=== PATIENT | female | born 1960 | race African-American/Black ===

== ENCOUNTER 2020-09-08 17:16 | Inpatient (IN) | payer OTHER ==
[~2020-09-08] VITALS: Ht 167.6 cm; Wt 59.4 kg
[2020-09-08 17:18] VITALS: BP 112/63
[2020-09-08 18:10] LABS: ABSOLUTE NEUTROPHILS 4.4 thou/uL (1.4-8.2); BASOPHILS 0.3 % (0.0-2.0); EOSINOPHILS 0.1 % (0.0-3.0); HEMATOCRIT 30.6 % (37.0-47.0); HEMOGLOBIN 9.9 gm/dL (12.0-15.0); LYMPHOCYTES 21.2 % (24.0-44.0); MCH 30.2 pg (26.0-34.0); MCHC 32.3 g/dL (28.0-37.0); MCV 93.6 fL (80.0-100.0); MONOCYTES 4.7 % (1.0-8.0); PLATELET COUNT 363 thou/uL (150-400); POLYS 73.7 % (36.0-66.0); RBC 3.27 mil/uL (4.20-5.00); RDW 16.6 % (10.5-14.5)
[2020-09-08 18:25] LABS: ANION GAP 19 mmol/L (7-16); BUN 13 mg/dL (7-18); CALCIUM 9.1 mg/dL (8.5-10.1); CHLORIDE 102 mmol/L (98-107); CO2 21 mmol/L (21-32); CREATININE 0.9 mg/dL (0.6-1.0); GLUCOSE 86 mg/dL (74-106); SODIUM 142 mmol/L (136-145); TROPONIN-I <0.06 ng/mL (<0.06)
[2020-09-08 18:31] LABS: POTASSIUM 2.2 mmol/L (3.5-5.1)
[2020-09-08 19:10] LABS: ALBUMIN 2.3 g/dL (3.4-5.0); DIRECT BILIRUBIN 0.5 mg/dL (<0.1-0.2); MAGNESIUM 1.9 mg/dL (1.8-2.4); TOTAL BILIRUBIN 1.4 mg/dL (0.2-1.0)
--- NOTE | 2020-09-08 19:54 | NUR ---
CONTACTED PHARMACY ABOUT LIQUID FORM OF POTASSIUM FOR PT. PT REPORTED TO DAY SHIFT NURSE THAT SHE IS NOT ABLE TO TAKE TABLET FORM AND NORMALLY TAKES LIQUID.
[2020-09-08 20:32] LABS: AMP/METHAMP Negative (Negative); BARBITURATES Negative (Negative); BENZODIAZEPINES Negative (Negative); COCAINE Negative (Negative); METHADONE Negative (Negative); OPIATES Negative (Negative); PCP Negative (Negative)
[2020-09-08 20:53] VITALS: BP 101/77
--- NOTE | 2020-09-08 20:58 | NUR ---
1ST ATTEMPT TO CALL REPORT NO ANSWER.
[2020-09-08 22:02] VITALS: BP 101/72
[2020-09-08 23:03] VITALS: BP 103/50
--- NOTE | 2020-09-09 02:41 | NUR ---
PT ADMITTED FROM THE ER AT 2215 .PT IS A/O X4.PT ADMITTED WITH C/OAMS,HYPOKALEMIA,WASTING AND NOT EATING.PT POTASSIUM REPLACED AT THE ER .PT C/O COLD AND PAIN ON LOWER EXTREMITY.PT IS ON ROOM AIR.PT HAS A SMITH CATHETER IN PLACE.PT IS MED/SURG TELE WITH NSR/ST.IV ON RT JUGULAR WITH NS AT 150CC/HR.PT IS ON BEDREST DUE TO BODY WEAKNESS.WILL CONTINUE TO MONITOR
[2020-09-09 07:18] VITALS: BP 111/73
[2020-09-09 07:37] LABS: CALCIUM 8.7 mg/dL (8.5-10.1); CREATININE 0.8 mg/dL (0.6-1.0); MAGNESIUM 1.7 mg/dL (1.8-2.4)
[2020-09-09 07:39] LABS: POTASSIUM 2.8 mmol/L (3.5-5.1)
--- NOTE | 2020-09-09 15:02 | NUR ---
Assumed pt care at 7am.Pt in bed very weak and drowsy.Assessment completed.vss Pt not motivated to do anything.Rn encouraged to drink ensure even if not hungry.Pt reported that she has been having difficult swallow since over 6months.Dr Lira notified,order noted.Received call from Dr Bryant ,he said Dr Galdamez will see pt tomorrow morning.Speech eval done and additional order noted.Will continue to monitor.
[2020-09-09 15:46] VITALS: BP 112/81
[2020-09-09 19:37] VITALS: BP 106/81
--- NOTE | 2020-09-10 02:03 | NUR ---
PT CARE ASSUMED WITH PT IN BED WATCHING TV.PT IS A/O X4.PT HAS A SMITH CATHETER IN PLACE .PT C/O PAIN BLE .PT IS ON FULL LIQUID DIET.PT DENIED NAUSEA AND VOMITING .PT IV IS ON LT IJ WITH D5W 0.45%NS 20MEQ KCL AT 100.PT IS TO HAVE A VIDEO SWALLOWING TEST ON FRIDAY.WILL CONTINUE TO MONITOR PER POC
[2020-09-10 07:17] VITALS: BP 116/83
[2020-09-10 19:03] VITALS: BP 137/85
--- NOTE | 2020-09-10 19:19 | NUR ---
Assumed pt care at 7am.Pt in bed sleeping on and off. Assessment completed.vss Pt k+ was low today and was replaced as ordered by Dr Lira.Consult called to GI.Dr Barillas here and order noted.Pt will be npo after night.Pt refused all meals but drank water only.New piv placed by iv team today.Report off to Jeanette glover.
--- NOTE | 2020-09-11 02:25 | NUR ---
PT CARE ASSUMED WITH PT IN BED WATCHING TV.PT A/O X4.PT LAST BAG OF POTASSIUM GIVEN .PT NPO MIDNIGHT FOR XR UPPER GI AND ESOPHOGRAM TODAY.PT HAS SMITH CATHETER IN PLACE.PT APPEARED TO BE IN NO ACUTE DISTRESS.WILL CONTINUE TO MONITOR
[2020-09-11 05:18] LABS: CALCIUM 8.2 mg/dL (8.5-10.1); CREATININE 0.5 mg/dL (0.6-1.0)
[2020-09-11 07:39] VITALS: BP 100/81
--- NOTE | 2020-09-11 11:50 | NUR ---
Case opened to follow for dc planning. Pt was admitted with enceph, low K+, and wasting. She had gastric bypass Jul 2019 and has struggled since that time. She reports that she lives with her dtr Carleen and 15 yr old gson. Her dtr Beth also comes over to help as needed. 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 She was recently dc'd from [facility] about 2wks ago and was using a rwalker and w/c inside the home. She has 4-5 steps to enter the home and can stay on the main level, Dtrs help with IADL's and some adl's. The past week she has gotten weaker, staying in bed in a depends, not eating and not taking her meds. Pt was a&ox4 during our visit and able answer assessment questions. With her permission, investment underwriter spoke with dtr Carleen to verify family's contact numbers and plof. Carleen indicates that they were not open to HH RN visits prior due to the pandemic, but they may be open to that at ri. PT/OT evals pending. Pt had upper GI and swallow test this am. [facility] contacted to confirm her dc date and rehab dx. Pending the pt's progress and care team recommendations, rehab eval may be needed. The pt has [place] medicaid and sees [facility] the [facility] for PCP. Will follow and as for rehab eval as appropriate.
--- NOTE | 2020-09-11 13:04 | NUR ---
ASSUMED PT CARE THIS AM. PT VSS, A&OX4. PT REPORTING PAIN IN LOWER LEGS, DOES NOT WANT PAIN MED OFFERED. XRAY COMPLETED THIS AM. PT TRANSFERED WELL TO WHEELCHAIR. IV PATENT, FLUIDS INFUSING. SMITH IN PLACE DRAINING WELL. PT ON TELE.
--- NOTE | 2020-09-11 15:14 | NUR ---
FAXED REFERRAL TO [facility] SPOKE WITH RIDGE IN ADM SHE RECEIVED REFERRAL CAN ACCEPT BUT WILL NOT HAVE BED AVAILABLE TIL FRIDAY AND WILL NEED PT/OT NOTES FAXED ONCE AVAILABLE. DP TO FOLLOW.
[2020-09-11 16:52] VITALS: BP 122/93
[2020-09-11 19:19] VITALS: BP 130/89
[2020-09-12 08:12] VITALS: BP 130/94
--- NOTE | 2020-09-12 08:12 | NUR ---
Assumed pt care at 1900. A/OX4 with flat affect. C/o BLE pain LOP 05/08, order for Stem obtained and pt verbalized relief. Incontinent of bowels this shift,carreon patent to DD with yellow urine. IVF infusing via LEJ w/o problems. Pt repositioned as tolorated. NSR/SA on telemetry.Fall precautions in place.
--- NOTE | 2020-09-12 11:15 | NUR ---
ASSUMED PT CARE THIS AM. PT VSS, A&OX3. PT COMPLAINS OF PAIN IN THE LOWER EXTREMITIES, GIVEN PAIN MEDS PER EMAR AND PT SLEEPING UPON REASSESSMENT. PT REPORTING NAUSEA, BUT DENYING NAUSEA MEDS WHEN OFFERED. PT TOOK A SIP OF JUICE WITH MED THIS AM, BUT REPORTED NAUSEA DIRECTLY AFTERWARDS. [facility] ASKING PT ABOUT PAIN AND GETTING SHORT ANSWERS FROM HER. SMITH IN PLACE, PATENT. IV PATENT, FLUIDS INFUSING. CALLS WHEN NEEDED. FALL PRECAUTIONS IN PLACE, FREQUENT CHECKS DONE.
--- NOTE | 2020-09-12 14:48 | NUR ---
DC WADER BOOT TOP ASSEMBLER SENT THERAPY EVALS AND UPDATED CLINICAL OVER TO [facility] FOR REVIEW FOR POSSIBLKE ADMISSION MIDDLE OF THIS WEEK. PT HAD EGD THIS DAY. CARE TEAM EVALUATING POSSIBLE NEED FOR J TUBE VS. TPN. CM TO FOLLOW INDICATED WITH DC PLANNING.
[2020-09-12 16:09] VITALS: BP 129/91
--- NOTE | 2020-09-12 16:23 | NUR ---
FAXED CLINICAL UPDATE TO [facility] SPOKE WITH RIDGE IN ADM SHE RECEIVED UPDATE. DP TO FOLLOW.
[2020-09-12 19:03] VITALS: BP 124/94
--- NOTE | 2020-09-13 03:39 | NUR ---
Assumed pt care at 1900.A/OX3,with episodes of confusion noted but able to make needs known. VSS. C/o BLE pain,medicated per EMAR with relief reported. Poor PO intake.fluids infusing via LEJ w/o any problems. Crystal patent to DD with yellow urine. Fall precautions in place. ST on telemetry.
--- NOTE | 2020-09-13 11:54 | NUR ---
GI WAS CONSULTED FOR POSSIBLE EGD. CM FOLLOWING REGARDING DC PLANNING.
[2020-09-13 16:30] VITALS: BP 127/93
--- NOTE | 2020-09-13 16:58 | NUR ---
Assumed pt care at 7am.Assessment completed.Pt refused all meals but took pain and antacid only.Pt c/o dizziness when trying to transfer to chair.Pt has 2 loose stool today and complete bath given.Later this afternoon,Dr Bryant here updates given and family was placed on phone to discuss care option with . Pt will be going for endoscopy in am.Consent signed and family aware.Will continue to monitor.
[2020-09-13 20:37] VITALS: BP 137/99
[2020-09-14 06:50] LABS: % SATURATION 83 % (20-39); IRON 107 ug/dL (50-170); TIBC 129 ug/dL (250-450)
[2020-09-14 07:20] LABS: FOLIC ACID 3.5 ng/mL (8.6-58.9)
[2020-09-14 07:52] VITALS: BP 104/81
--- NOTE | 2020-09-14 10:27 | NUR ---
CARE TEAM INDICATED THAT PT IS TO HAVE CT ABD AND KUB DONE THIS DAY. EGD ANTICIPATED FOR TOMORROW. CM TO FOLLOW INDICATED WITH DC PLANNING. UPDATES SENT TO [facility].
[2020-09-14 15:05] VITALS: BP 116/84
--- NOTE | 2020-09-14 18:25 | NUR ---
Assumed pt care at 7am.Pt in bed sleeping on and off.Assessment completed.vss but pt was drowsy and weak.Dr Bryant here,order noted.Pt went for ct after kub completed.Received call from gi lab that pt procedure will be tomorrow due to barium .Pt took pepcid with small water and she refused all meals.Will continue to monitor.
[2020-09-14 20:00] VITALS: BP 114/74
[2020-09-15 03:06] LABS: 25-HYDROXY TOTAL 37.1 ng/mL (30.0-100.0)
--- NOTE | 2020-09-15 06:31 | NUR ---
VSS-AFEBRILE. REMAINS ON ROOM AIR. SPORADIC CONFUSION, AND IMPULSIVENESS. PULLED OUT TWO IV'S OVERNIGHT, AND TRIES TO GET OUT OF BED WITHOUT ASSISTANCE. REMINDED OF SAFETY PRECAUTIONS AND REASON FOR IV PLACEMENT, BUT BEHAVIORS CONTINUED. KEPT NPO AFTER MIDNIGHT FOR EGD TODAY. FALL PRECAUTIONS IN PLACE.
[2020-09-15 10:30] LABS: ALBUMIN 1.8 g/dL (3.4-5.0); ANION GAP 16 mmol/L (7-16); BUN 7 mg/dL (7-18); CHLORIDE 109 mmol/L (98-107); CHOLESTEROL 99 mg/dL (<200); CO2 19 mmol/L (21-32); CREATININE 0.7 mg/dL (0.6-1.0); GLUCOSE 75 mg/dL (74-106); HDL CHOLESTEROL 71 mg/dL (>40); LDL CHOLESTEROL 18 mg/dL (<100); MAGNESIUM 1.4 mg/dL (1.8-2.4); PHOSPHORUS 2.7 mg/dL (2.5-4.9); POTASSIUM 3.1 mmol/L (3.5-5.1); SGOT 16 U/L (15-37); SGPT 12 U/L (30-65); SODIUM 144 mmol/L (136-145); TC:HDL 1.4 Ratio (Not establshd); TOTAL BILIRUBIN 0.5 mg/dL (0.2-1.0); TOTAL PROTEIN 4.8 g/dL (6.4-8.2); TRIGLYCERIDE 50 mg/dL (<150); VLDL 10 mg/dL (<40)
[2020-09-15 10:38] VITALS: BP 90/76
--- NOTE | 2020-09-15 11:44 | NUR ---
VAT CONSULTED FOR PICC PLACEMENT. PT TO START TPN TONIGHT. THIS RN ATTEMPTED RIGHT BRACHIAL PICC, WITHOUT SUCCESS. WIRE WOULD NOT THREAD. LEFT BRACHIAL AND BASILIC EXTREMELY SMALL. SPOKE WITH KAITLYNN MONTOYA TO RECOMMEND PT GET TUNNELED IJ. RIGHT FOREARM 20GX1.75IN PIV STARTED, WITH US GUIDANCE, X2.
--- NOTE | 2020-09-15 12:00 | NUR ---
Received awake on bed. Due medications given as prescribed. On nothing per orem, pt informed and aware; mouth care done. On telemetry; no complains of chest pain, crushing sensation and heaviness. On room air. Vital signs stable. On blood sugar monitoring, taken and recorded accordingly. With carreon in place, draining well; output measured and recorded accordingly. No IV in place, called IV nurse to have it re-inserted, a/w IV access. Falls bundle in place. Assisted in ADLs. No nausea, no vomiting and no abdominal pain noted. To continue monitoring patient. Pt seen and examined by Dr Bryant, for PICC line- IR called- to have IV nurse try first then if unable to insert line then will do IR assisted PICC line insertion; for TPN- pharmacy updated that pt has no central line yet- will call them once inserted. Consent obtained thru pt's daugther via telephone- update given, informed her that pt will be having EGD as well; consent obtained and verified by co-nurse. To continue monitoring patient. Pt seen and examined by IV nurse, unable to insert PICC line, IR informed- will do procedure; IV nurse placed peripheral IV line for EGD- coordinated with GI nurse that PICC line not yet inserted but with peripheral line already; a/w to fetch patient.
--- NOTE | 2020-09-15 12:05 | NUR ---
CARE TEAM INDICATED THAT PT IS TO HAVE AN EGD TODAY. PT TO HAVE PICC PLACED AND TPN INITIATED. SURGERY INDICATED THAT THEY ANTICPATE PROBABLE GTUBE PLACEMENT BEGINNG OF NEXT WEEK. MAR[facility]ime UPDATED THEY ARE ABLE TO ACCEPT PT ONCE MEDICALLY STABLE. CM TO FOLLOW INDICATED WITH DC PLANNING.
[2020-09-15 16:46] VITALS: BP 102/74
[2020-09-15 19:26] VITALS: BP 125/102
[2020-09-16 06:04] LABS: ALBUMIN 1.6 g/dL (3.4-5.0); CALCIUM 8.3 mg/dL (8.5-10.1); CREATININE 0.6 mg/dL (0.6-1.0); MAGNESIUM 1.4 mg/dL (1.8-2.4); PHOSPHORUS 3.4 mg/dL (2.5-4.9); POTASSIUM 3.1 mmol/L (3.5-5.1); TOTAL BILIRUBIN 0.3 mg/dL (0.2-1.0); TOTAL PROTEIN 4.1 g/dL (6.4-8.2)
[2020-09-16 07:15] VITALS: BP 93/59
--- NOTE | 2020-09-16 10:13 | NUR ---
Received awake on bed. Due medications given as prescribed, able to swallow meds w/o difficulty. On room air. Vital signs stable. On telemetry; no complains and signs of chest pain, crushing sensation and heaviness. On regular diet, tolerating well- with poor appetite; assisted and encouraged in eating and drinking; no nausea, no vomiting and no abdominal pain noted. On blood sugar monitoring, taken and recorded accordingly. With carreon in place, draining well; output measured and recorded accordingly. With double lumen PICC line at R upper arm, TPN infusing well; on D51/2NS + 20meq KCL infusing at 100cc/hr; wrapped in coban. Falls bundle in place, turned on her sides regularly. Checked pt's med rec, not done since admission- IR done; called pt's daughter to have list of pt's meds- a/w call back. To continue monitoring patient.
[2020-09-16] MEDS ORDERED: B-12 DOTS500 MCG PO (13:23)
[2020-09-16] MEDS ORDERED: COLESTIPOL HCL1 G1 PO (13:24)
[2020-09-16] MEDS ORDERED: NEXIUM 40 MG CA40 M1 PO (13:25)
[2020-09-16] MEDS ORDERED: DULOXETINE HCL30 MG PO (13:25)
[2020-09-16] MEDS ORDERED: PRINIVIL20 M1 PO (13:26)
[2020-09-16] MEDS ORDERED: FOLIC ACID1 MG PO (13:26)
[2020-09-16] MEDS ORDERED: VITAMIN D325 MC1 PO (13:26)
[2020-09-16 15:20] VITALS: BP 104/85
[2020-09-16 20:03] VITALS: BP 121/88
[2020-09-17 06:00] LABS: WBC 5.9 thou/uL (4.0-11.0)
[2020-09-17 06:04] LABS: HEMATOCRIT 20.6 % (37.0-47.0); HEMOGLOBIN 6.7 gm/dL (12.0-15.0); MCH 30.3 pg (26.0-34.0); MCHC 32.8 g/dL (28.0-37.0); MCV 92.6 fL (80.0-100.0); RBC 2.22 mil/uL (4.20-5.00); RDW 17.6 % (10.5-14.5)
[2020-09-17 06:09] LABS: MAGNESIUM 1.6 mg/dL (1.8-2.4)
--- NOTE | 2020-09-17 06:11 | NUR ---
Pt. has been awake a majority of the shift. She has been confused and paranoid. She has been pulling on her carreon bag and when asked her to stop she began verbalizing profanity. No c/o pain. Refused po meds this am. Pt. also does not drink well. Po fluids offered, but will refuse most of the time. Bed alarm is on.
[2020-09-17 06:16] LABS: ALBUMIN 1.7 g/dL (3.4-5.0); CALCIUM 8.4 mg/dL (8.5-10.1); CREATININE 0.6 mg/dL (0.6-1.0); POTASSIUM 3.5 mmol/L (3.5-5.1); TOTAL BILIRUBIN 0.3 mg/dL (0.2-1.0); TOTAL PROTEIN 4.6 g/dL (6.4-8.2)
[2020-09-17 07:15] VITALS: BP 90/65
--- NOTE | 2020-09-17 10:21 | NUR ---
VAT CONSULTED FOR A PICC REPLACEMENT FOR PICC PT PULLED OUT YESTERDAY. VAT ATTEMPTED ON BOTH ARMS THIS WEEK AND UNSUCCESSFUL DUE TO BILAT SUBCLAVIAN STENOSIS. IR PLACED PICC WITH OVER 5 MIN OF FLOURO AND HAD DIFFICULTY. I PLACED A PIV LAST EVENING AND PT WILL HAVE TO GO BACK TO IR TOMORROW FOR A PICC AGAIN. RN INFORMED--PIV STILL FUNCTIONAL
--- NOTE | 2020-09-17 11:17 | NUR ---
ASSUMED PT CARE THIS AM. PT VSS, A&OX2. PT HAS SOME PARANOIA WITH STAFF, APPEARS TO HAVE AUDITORY HALLUCINATIONS AT POINTS. TOOK MEDS THIS AM. IV PATENT, FLUIDS INFUSING WELL. SMITH IN PLACE. PT ATTEMPTING TO PULL ON SMITH CATHETER, REMINDING HER TO NOT PULL IT OUT. SPOKE TO IV TEAM ABOUT NEEDING A PICC LINE IN ORDER TO GIVE TPN, THEY ADVISED THAT IR WILL PLACE THE PICC TOMORROW AND THEN CAN START TPN.
[2020-09-17 11:30] LABS: URINE BILIRUBIN NEGATIVE (Negative); URINE BLOOD 1+ (Negative); URINE COLOR YELLOW; URINE GLUCOSE-RANDOM* NEGATIVE (Negative); URINE KETONES NEGATIVE (Negative); URINE PROTEIN (DIPSTICK) NEGATIVE (Negative); URINE SPECIFIC GRAVITY >= 1.030 (1.005-1.035); URINE UROBILINOGEN 0.2 E.U./dl (0.2-1.0)
[2020-09-17 11:31] LABS: URINE CLARITY HAZY; URINE LEUKOCYTES-REFLEX 2+ (Negative); URINE NITRITE-REFLEX POSITIVE (Negative)
[2020-09-17 11:46] LABS: CASTS None Seen /LPF (None Seen); MUCUS >6 Heavy strn/LPF (None Seen); SQUAMOUS 4-10 Moderate /LPF (0-3)
[2020-09-17 11:47] LABS: CRYSTALS None Seen /LPF (None Seen); URINE RBC 0-2 Rare /HPF (0-2); URINE WBC-REFLEX >25 Many /HPF (0-5)
[2020-09-17 11:48] LABS: WBC CLUMPS Few (None Seen)
[2020-09-17 15:07] VITALS: BP 108/53
[2020-09-17 20:30] VITALS: BP 124/40
[2020-09-18 04:12] LABS: CALCIUM 8.7 mg/dL (8.5-10.1); CREATININE 0.6 mg/dL (0.6-1.0); MAGNESIUM 1.5 mg/dL (1.8-2.4); PHOSPHORUS 2.9 mg/dL (2.6-4.7)
[2020-09-18 04:16] LABS: POTASSIUM 3.7 mmol/L (3.5-5.1)
--- NOTE | 2020-09-18 04:48 | NUR ---
Assumed pt care at 1900. VSS. Alert to self/situation, paranoid and visual/ auditory hallucinations noted. Pt has a psych consult pending. UA results possible positive for UTI,Yennifer ARTIFICIAL LIMB FITTER notified;N.o for Rocephin 1gm written and implemented. ABTs administered w/o problems. Pt declined taking Questran at HS stating she has taken it before and it doesn't work her body doesn't digest it. Pt has had 2 episodes of diarrhea,yellow in color with particles of undigested food. Carreon patent with yellow urine;bladder scan done d/t low output noted with no residual noted. Pt's restless and attempts to move tele box/carreon frequently eduacation provided and equipment hid from pt. IVF infusing via RUE w/o any problems noted. Fall precautions in place,will continue to monitor pt. Bedbath completed. Will relay to oncoming nurse.
[2020-09-18 05:34] VITALS: BP 82/66
[2020-09-18 07:37] VITALS: BP 102/71
--- NOTE | 2020-09-18 07:53 | EKG ---
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: kf : 1960 Requested By: Aristeo Poe Order Number: [id number] MD: Quang Maria Measurements Intervals [place] Rate: 87 P: 76 TN: 148 QRS: -26 QRSD: 98 T: -23 QT: 401 QTc: 483 Interpretive Statements Sinus rhythm Consider right atrial enlargement Low voltage, extremity and precordial leads No previous ECG available for comparison Electronically Signed On 09-11-2020 7:17:54 HEALTH INFORMATION TECHNICIAN by Quang Maria [email or web address] <ELECTRONICALLY SIGNED> By: Quang Maria MD, [facility] 09/11/20 0717 1759 1759 Quang Maria MD, FACC /EPI
[2020-09-18 11:40] VITALS: BP 101/68; BP 97/61
--- NOTE | 2020-09-18 14:52 | NUR ---
Care team indicated that they are awaiting bx results. Pt to have EEG today. Nurse to Transfuse one unit of PRBC. Monitor HGb. Continue PPI. She will be started on TPN today. Psyc cosulted. Clinical uopdate to be sent to [facility]. Cm to follow as indicated with dc planning.
--- NOTE | 2020-09-18 18:44 | NUR ---
PT A&O TO SELF, VSS, NO APPARENT PAIN. 1 UNIT OF BLOOD GIVEN. PICC PLACED RIGHT UPPER ARM, FLUIDS RUNNING. PATIENT REFUSING MEDS, FOOD AND DRINK. SMITH INTACT. PATIENT REPOSITIONED. NO SIGNS OF DISTRESS. WILL CONTINUE TO MONITOR.
[2020-09-18 19:48] VITALS: BP 103/74
--- NOTE | 2020-09-19 04:41 | NUR ---
ASSUMED CARE OF PT AT 1900. PT IS A/O X1 AND IS ON BEDREST. PT IS ON ROOM AIR. CONTINUES IV ANTIBIOTICS AND FLUIDS. MEDICATIONS GIVEN PER MAR. PT IS CONFUSED BUT DOES NOT C/O HALLUCINATIONS. SMITH IN PLACE AND DRAINING YELLOW URINE. FALL PRECAUTIONS ARE IN PLACE, CALL LIGHT IS WITHIN REACH
[2020-09-19 04:53] LABS: HEMATOCRIT 24.8 % (37.0-47.0); HEMOGLOBIN 8.3 gm/dL (12.0-15.0)
[2020-09-19 05:13] LABS: CALCIUM 8.5 mg/dL (8.5-10.1); CREATININE 0.6 mg/dL (0.6-1.0); MAGNESIUM 1.6 mg/dL (1.8-2.4); PHOSPHORUS 3.9 mg/dL (2.5-4.9); POTASSIUM 3.2 mmol/L (3.5-5.1)
[2020-09-19 08:40] VITALS: BP 119/86
--- NOTE | 2020-09-19 11:36 | NUR ---
RD received consult to initiate calorie count. Calorie count envelope hung on doorway and RN notified. RD will continue to follow.
[2020-09-19 15:20] VITALS: BP 100/65
--- NOTE | 2020-09-19 16:06 | PATH ---
[facility] [place] [address] [address] PATHOLOGY RPT PROCEDURE Name: BIPIN AYALA Room #: 450-P ADM IN M.R.#: [id number] Admission: 09/08/20 Date of : 58 Discharge: Report #: [id number] Path Case #: [id number] [facility] Accession Number: [id number] . 01 Material submitted: . PART A: small bowel - BIOPSY SMALL BOWEL POLYP PART B: stomach - BIOPSY GASTRIC ULCER R/O H. PYLORI . 01 Clinical history: . NAUSEA/VOMITING, DECREASED APPETITE, GASTRIC ULCERS, AMS, LOW K, WASTING . 02 Diagnosis: A. Polyp, small bowel, endoscopic biopsy: - TUBULAR ADENOMA. - Negative for high grade dysplasia. . B. Tissue designated as, "gastric ulcer rule out H. pylori", endoscopic biopsy: - Small bowel mucosa with unremarkable villus length, favor pyloric outlet mucosa. - Negative for Helicobacter pylori (properly-controlled immunohistochemical stain performed). . (IUV:mml; 09/19/2020) QL 09/19/2020 1332 Local . 02 Electronically signed: . Alina Miller MD, Pathologist NPI- [id number] . 01 Gross description: . A. The specimen is received in formalin, labeled "Bipin Ayala, biopsy small bowel polyp". Received is a segment of pale meza soft tissue measuring 0.4 cm in maximum dimensions. The specimen is submitted entirely in cassette A1. . B. The specimen is received in formalin, labeled "Bipin Ayala, biopsy gastric ulcer, R/O H. pylori". Received is a segment of pale meza soft tissue measuring 0.5 cm in maximum dimensions. The specimen is submitted entirely in cassette B1. (CAA; 09/18/2020) QA/[facility] 09/18/2020 1049 Local . 02 Pathologist provided ICD-10: D12.6, R11.2, K25.9 . 02 CPT . [address] [address] PATHOLOGY RPT PROCEDURE Name: BIPIN AYALA Room #: 450-P ADM IN M.R.#: [id number] Admission: 09/08/20 Date of : 58 Discharge: Report #: [id number] Path Case #: [id number] Specimen Comment: A courtesy copy of this report has been sent to [phone] Specimen Comment: [phone] Specimen Comment: Report sent to / DR HARRIS Performed at: [address], [place], [place] [id number] MD Robles Flores MD Phone: [phone] Performed at: [address] [id number] MD Alina Miller MD Phone: [phone]
--- NOTE | 2020-09-19 16:17 | NUR ---
PT A&OX2-3, VSS, DENIES PAIN. RIGHT UPPER ARM PICC, TPN AND FLUIDS RUNNING. PATIENT WORKED WITH PT/OT. PATIENT MORE COOPERATIVE AND PLEASANT TODAY. PATIENT MORE ORIENTED. LOOSE STOOLS X2 TODAY, BROWN, NO BLOOD NOTICED. PATIENT FINISHED ALL BREAKFAST TODAY. PATIENT HAS TREMORS MORE PRESENTED IN HANDS. NO SIGNS OF DISTRESS. WILL CONTINUE TO MONITOR.
--- NOTE | 2020-09-19 16:19 | NUR ---
FAXED CLINICAL UPDATE TO [facility] SPOKE WITH ISAIAS IN INTAKE SHE RECEIVED UPDATE BUT THEY CANNOT ACCEPT PT ON TPN. DP TO FOLLOW.
[2020-09-19 19:24] VITALS: BP 107/83
--- NOTE | 2020-09-20 04:28 | NUR ---
ASSUMED CARE OF PT 0300. PT IS A/O X1 AND IS ON BEDREST. PT DENIES ANY C/O OF PAIN OR DISCOMFORT. IRRITABLE BUT COOPERATIVE. VSS. AT THIS TIME PT IS LYING IN HER BED AND APPEARS TO BE SLEEPING. WILL CONTINUE TO MONITOR. FALL PRECAUTIONS IN PLACE, CALL LIGHT IS WITHIN REACH.
[2020-09-20 05:58] LABS: ALBUMIN 1.5 g/dL (3.4-5.0); CALCIUM 7.8 mg/dL (8.5-10.1); CREATININE 0.6 mg/dL (0.6-1.0); MAGNESIUM 1.9 mg/dL (1.8-2.4); PHOSPHORUS 4.3 mg/dL (2.5-4.9); POTASSIUM 4.1 mmol/L (3.5-5.1); TOTAL BILIRUBIN 0.3 mg/dL (0.2-1.0); TOTAL PROTEIN 4.1 g/dL (6.4-8.2)
[2020-09-20 07:24] VITALS: BP 127/89
--- NOTE | 2020-09-20 09:24 | NUR ---
calorie count: pt ate only 1 meal yesterday and refused all others in addition to refusing breakfast this am. Recommend continue tpn to reach goal 75ml/hr.
--- NOTE | 2020-09-20 14:08 | NUR ---
PT CONTINUES ON TPN. CARE TEAM HAVE INDICATED THAT THERE ISN'T A PLAN TO PLACE FEEDING TUBE AT THIS TIME. GI PATTERN DRUM MAKER AND PHYSICIAN INDICATED THAT THEY ARE HOPEFUL THAT PT CAN STOP TPN IN A FEW DAYS. CM HAD SPOKEN WITH ADMISSIONS AT [facility] AND THEY DON'T TAKE PT'S ON TPN. CM SPOKE WITH [facility] AND THEY INDICATED THAT THEY MIGHT BE ABLE TO ACCEPT PT. REPEAT COVID TEST ORDERED. PT IS BEING TESTED FOR CDIFF NOW ASLO. DR. VALDOVINOS SAW PT AND INDICATED THEY WOULD ACCEPT PT ONCE HER DIARRHEA IS BETTER CONTROLLED. THEY WOULD NEED MEDICAID AUTH WELL. CM NOTIFIED PHYSICIAN OF THIS. SHE INDICATED THAT SHE WOULD LIKE FOR CARE TEAM TO WORK FOR POSSIBLE DC TOMORROW. CM CONVEYED TO [facility] LIASION. COVID TEST AND CDIFF PENDING. CM SPOKE WITH PT AND THE DTR PT RESIDES WITH TONJA AND PT'S DTR IS AGREEABLE. PT WOULD PREFER TO NOT GO TO REHAB BUT INDICATED SHE DOESN'T REALLY HAVE A CHOICE. CM TO FOLLOW INDIATED WITH POSSIBLE DC TO [facility] TOMORROW IS DIARRHEA AND [place] BALJINDER BALBUENA ARE RECIEVED.
[2020-09-20 16:25] VITALS: BP 107/71
[2020-09-20 20:00] VITALS: BP 110/82
--- NOTE | 2020-09-20 20:51 | NUR ---
PT A&O, VSS, DENIES PAIN. PATIENT IRRITABLE TODAY, VISUAL HALLUCIANTIONS, PATIENT REFUSED MEDICATION. PATIENT ATE SOME LUNCH AND DINNER, PLACED IN CALORIE COUNT ENVELOPE. PATIENT REPOSITIONED OFTEN. PICC RIGHT UPPER ARM PATENT, TPN AND FLUIDS RUNNING. PATIENT HAD TWO LARGE LOOSE STOOLS, STOOL SAMPLE COLLECTED, COVID TEST TAKEN. NO SIGNS OF DISTRESS. WILL CONTINUE TO MONITOR.
[2020-09-21 05:49] LABS: HEMATOCRIT 24.4 % (37.0-47.0); MCH 30.1 pg (26.0-34.0); MCHC 32.7 g/dL (28.0-37.0); RBC 2.65 mil/uL (4.20-5.00); RDW 16.8 % (10.5-14.5)
[2020-09-21 06:11] LABS: CALCIUM 8.2 mg/dL (8.5-10.1); CREATININE 0.6 mg/dL (0.6-1.0); MAGNESIUM 2.2 mg/dL (1.8-2.4); PHOSPHORUS 4.5 mg/dL (2.5-4.9); POTASSIUM 3.2 mmol/L (3.5-5.1)
[2020-09-21 07:21] VITALS: BP 99/71
--- NOTE | 2020-09-21 08:25 | NUR ---
Pt still not eating much of anything, less than 300 calories consumed. Recomend continue on tpn at this time. Goal is 75ml/hr.
--- NOTE | 2020-09-21 10:14 | NUR ---
CM continues to follow for anticipated discharge to [address] [place] [address] once medically stable and all pending lab results are in. [address] [place] [address] will then have to gain authorization for acute rehab services.
[2020-09-21] MEDS ORDERED: ACIDOPHILUS1 EAC4 PO (10:51)
[2020-09-21] MEDS ORDERED: DEPAKOTE SPRIN125 MG PO (10:51)
[2020-09-21] MEDS ORDERED: CHOLESTYRAMINE L4 GM PO (10:51)
[2020-09-21] MEDS ORDERED: CARAFATE 11 GM/10 M1 PO (10:51)
[2020-09-21] MEDS ORDERED: KEFLEX500 M2 PO (10:51)
[2020-09-21] MEDS ORDERED: HALOPERIDOL 1 MG1 MG PO (10:51)
[2020-09-21] MEDS ORDERED: FIRVANQ50 MG/1 ML PO (10:52)
--- NOTE | 2020-09-21 11:31 | NUR ---
Dr. Lira verbally ordered :carreon out of the patient.
[2020-09-21 14:50] VITALS: BP 105/66
--- NOTE | 2020-09-21 16:26 | NUR ---
The staff increased the rate of tpn TO 75 ML /hour according to the medical notes, Dr. Lira agreed with it.
--- NOTE | 2020-09-22 13:47 | HC ---
[facility] [place] [address] CONSULTATION Name: BIPIN RUBI Room #: 450-[facility] IN M.R.#: [id number] Admission: 09/08/20 Attend Phys: Emma Lira MD Discharge: 09/21/20 Date of : 58 Report #: [id number] THIS REPORT FOR: cc: ALIX - No family physician/PCP FAM - No family physician/PCP Cody Neil MD ~ DATE OF SERVICE: 09/17/2020 HISTORY OF PRESENT ILLNESS: This 60-year-old female patient who is unable to provide any reliable history. I reviewed the patient's records and I will talk to the hospitalist tomorrow. I cannot reach any family member. The records indicate she lives with her daughter. We will continue to make an effort to try to reach the daughter. This patient was admitted with altered mental status. She had generalized weakness, poor appetite, increased urinary frequency, but it is not clear what her baseline mental status is. REVIEW OF SYSTEMS: From the record. Vitamin D deficiency, hypokalemia, hypertension. She has neuropathy. She also had a gastric bypass surgery as I understand from the records. She is apparently not able to take care of herself at home. She also has a prior history of hysterectomy. She did have a CT scan of the head during this hospitalization and that showed no acute abnormality. She also had a TSH, vitamin B12 and vitamin D and they were also unremarkable. I tried to do the 14-point evaluation and that is all I can get from the chart and the record. PAST MEDICAL HISTORY: Positive for gastric bypass surgery. FAMILY HISTORY: Unavailable from the patient. SOCIAL HISTORY: She apparently does not drink or smoke, but her history is not reliable. PHYSICAL EXAMINATION: Indicates she is alert. She is responsive. Her speech looks intact. She can tell me what month it is. She did not know what hospital she is in. She could not name the president. Cranial nerve examination was unremarkable the best I can tell. She was extremely uncooperative with that. She moves all 4 extremities. I cannot tell the strength because she will not cooperate. Even when I touch her, she says it hurts. I tried to do the position sense, she will not cooperate. I tried to do the reflexes, she said it hurts too much. Tone looks symmetrical. She did not do the cerebellar sign. She did not cooperate with the fundus examination. There is no meningeal sign. Pulses look unremarkable in the upper extremities, lower extremities she will not even let me touch her. Cardiac examinations appear noncontributory so is respiratory. Blood pressure is 90/65, respiration is 16, pulse is 71, and temperature is 97.5. [facility] [address] [place] [address] CONSULTATION Name: BIPIN RUBI Room #: 450-[facility] IN M.R.#: [id number] Admission: 09/08/20 Attend Phys: Emma Lira MD Discharge: 09/21/20 Date of : 58 Report #: [id number] LABORATORY DATA: Her hemoglobin is only . CT scan was unremarkable. IMPRESSION: Difficult to form in this patient until we know what the baseline status is. I will try to continue to make an effort to reach the daughter to see how much memory she had in the past. I suspect she most likely has dementia in the baseline, which got decompensated with multiple issues she is having. It looks like she had a white count of more than 25 in the urine and had a urinary tract infection. She is significantly anemic. Her albumin is low, indicating that she probably has been malnourished. RECOMMENDATIONS: 1. We will try to reach the family. 2. I will suggest nutritional therapy with vitamin therapy. 3. I will suggest getting a CPK. I will also suggest getting a copper level because the patient had a bypass surgery. I will discuss the patient with you tomorrow and after reaching the daughter, will decide if we need to do an MRI or any other testing on her. Thank you very much for this referral. I spent more than 50 minutes of time taking care of this patient today and majority was spent counseling and coordinating, but I do not know whether the patient understood anything and I will try to reach the family. <ELECTRONICALLY SIGNED> By: Cody Neil MD 09/22/20 1347 [id number] Cody Neil MD /nt
--- NOTE | 2020-09-22 13:49 | EEG ---
[facility] [place] [address] ELECTROENCEPHALOGRAM Name: BIPIN RUBI Room #: 450-[facility] IN M.R.#: [id number] Admission: 09/08/20 Attend Phys: Emma Lira MD Discharge: 09/21/20 Date of : 58 Report #: [id number] THIS REPORT FOR: //name// The patient's EEG was attempted. The whole EEG is masked by a lot of muscle and movement artifact. Only a very limited EEG is interpretable. That shows background activity of about 6-7 Hz and 15 microvolt. Photic stimulation is unremarkable. The patient may be drowsy at that time. IMPRESSION: This patient's EEG is nondiagnostic. A lot of artifact is present. Repeat EEG can be done when the patient is more cooperative. <ELECTRONICALLY SIGNED> By: Cody Neil MD 09/22/20 1349 [id number] Cody Neil MD /nt
== END 2020-09-21 16:27 | DRG 347 ==
LOC: ER 17:16 → 4W 19:58 → EROBS 19:58 → 4W 22:02
PROVIDERS: Emergency Medicine; Internal Medicine; Nurse Practitioner Family; Surgery; ADMIT Hospitalist; ATTEND Hospitalist
PROC: 0DB68ZX Excision of Stomach, Via Natural or Artificial Opening Endoscopic, Diagnostic (ICD-10-PCS; principal; 2020-09-15)
PROC: B5181ZA Fluoroscopy of Superior Vena Cava using Low Osmolar Contrast, Guidance (ICD-10-PCS; principal; 2020-09-15)
PROC: 0DBA8ZZ Excision of Jejunum, Via Natural or Artificial Opening Endoscopic (ICD-10-PCS; principal; 2020-09-15)
PROC: 02HV33Z Insertion of Infusion Device into Superior Vena Cava, Percutaneous Approach (ICD-10-PCS; principal; 2020-09-15)
PROC: B548ZZA Ultrasonography of Superior Vena Cava, Guidance (ICD-10-PCS; principal; 2020-09-15)
PROC: 30233N1 Transfusion of Nonautologous Red Blood Cells into Peripheral Vein, Percutaneous Approach (ICD-10-PCS; 2020-09-18)
PROC: B548ZZA Ultrasonography of Superior Vena Cava, Guidance (ICD-10-PCS; 2020-09-19)
PROC: B5181ZA Fluoroscopy of Superior Vena Cava using Low Osmolar Contrast, Guidance (ICD-10-PCS; 2020-09-19)
PROC: 02HV33Z Insertion of Infusion Device into Superior Vena Cava, Percutaneous Approach (ICD-10-PCS; 2020-09-19)
DX: K25.9 Gastric ulcer, unspecified as acute or chronic, without hemorrhage or perforation (principal); G93.41 Metabolic encephalopathy; E43 Unspecified severe protein-calorie malnutrition; K90.9 Intestinal malabsorption, unspecified; Z68.1 Body mass index [BMI] 19.9 or less, adult; I95.9 Hypotension, unspecified; E87.6 Hypokalemia; E11.42 Type 2 diabetes mellitus with diabetic polyneuropathy; E78.5 Hyperlipidemia, unspecified; D64.89 Other specified anemias; E83.42 Hypomagnesemia; Z20.828 Contact with and (suspected) exposure to other viral communicable diseases; K63.5 Polyp of colon; F20.9 Schizophrenia, unspecified; F31.9 Bipolar disorder, unspecified; R41.0 Disorientation, unspecified; Z90.49 Acquired absence of other specified parts of digestive tract; Z88.8 Allergy status to other drugs, medicaments and biological substances; Z90.710 Acquired absence of both cervix and uterus; Z86.010 Personal history of colon polyps
CPT/HCPCS: 10045; 27000; 62110; 62900; 70005

== ENCOUNTER 2020-09-21 11:23 | Inpatient (IN) | payer OTHER ==
[~2020-09-21] VITALS: Ht 167.6 cm; Wt 53.2 kg
[~2020-09-21 11:23] MED LIST: ACIDOPHILUS1 EAC4 PO; B-12 DOTS500 MCG PO; CARAFATE 11 GM/10 M1 PO; CHOLESTYRAMINE L4 GM PO; COLESTIPOL HCL1 G1 PO; DEPAKOTE SPRIN125 MG PO; DULOXETINE HCL30 MG PO; FIRVANQ50 MG/1 ML PO; FOLIC ACID1 MG PO; HALOPERIDOL 1 MG1 MG PO; KEFLEX500 M2 PO; NEXIUM 40 MG CA40 M1 PO; PRINIVIL20 M1 PO; VITAMIN D325 MC1 PO
--- NOTE | 2020-09-21 17:32 | NUR ---
NEW ADMISSION FROM [facility]. CAME IN AT 1550, VIA BED WITH 2 HOSP PERSONNEL. PT IS ALERT AND ORIENTATED. TPN IN PROGRESS AT 75ML/HR. LUNGS CLEAR BUT DIMINISHED, BS PRESENT AND HAD A LARGE BM PRIOR TO ADMISSION. SMITH WAS REMOVED AT 1545 PRIOR TO SENDING PT TO REHAB. ASSESSMENT DONE, SKIN INTACT WITH NO SIGN OF BREAKDOWN. PT ORIENTATED TO ROOM AND SURROUNDING. BELONGINGS DOCUMENTED AND BAG KEPT IN THE CLOSET. PT HAS NO TEETH OR DENTURES. ABLE TO EAT SOFT FOOD, APPETITE FAIR. PT AND OT TO EVAL AND TREAT TOMORROW. CONT TO MONITOR.
[2020-09-21 19:49] VITALS: BP 127/91
--- NOTE | 2020-09-22 00:59 | NUR ---
ASSUMED CARE OF PT AT 1915 ON 09/21/20. PT IS A&OX3. IS ON ROOM AIR. IS STABLE. DENIES PAIN AT THIS TIME. PT REPORTED HAVING HALLUCINATIONS THROUGHOUT THE DAY & STATED, "I AM NOT QUITE SURE WHAT IS CAUSING THIS". PT STATED, "DO YOU SEE THAT LITTLE GIRL IN THE KITCHEN RIGHT THERE"? PT WAS REORIENTED TO PLACE & SITUATION. HAS NOT HAD AN EPISODE SINCE. IS CURRENTLY IN BED WATCHING TV. CALL LIGHT WITHIN REACH. TPN INFUSING. LABS REVIEWED. VITALS ASSESSED. WILL CONTINUE TO MONITOR. PT HAS BEEN QUED TO TURN Q2H. IS ABLE TO TURN SELF WITH MIN ASSISTANCE.
[2020-09-22 05:51] LABS: HEMATOCRIT 23.3 % (37.0-47.0); HEMOGLOBIN 8.3 gm/dL (12.0-15.0); MCHC 35.5 g/dL (28.0-37.0); MCV 92.8 fL (80.0-100.0); RBC 2.51 mil/uL (4.20-5.00); RDW 17.2 % (10.5-14.5); WBC 4.1 thou/uL (4.0-11.0)
[2020-09-22 05:59] LABS: ALBUMIN 1.4 g/dL (3.4-5.0); CALCIUM 7.9 mg/dL (8.5-10.1); CREATININE 0.5 mg/dL (0.6-1.0); MAGNESIUM 2.3 mg/dL (1.8-2.4); PHOSPHORUS 3.9 mg/dL (2.6-4.7); POTASSIUM 3.1 mmol/L (3.5-5.1); TOTAL BILIRUBIN 0.3 mg/dL (0.2-1.0); TOTAL PROTEIN 4.3 g/dL (6.4-8.2)
[2020-09-22 07:35] VITALS: BP 90/45
--- NOTE | 2020-09-22 14:47 | NUR ---
ASSUMED CARE OF PT AT 0700. PT IS A&OX4, BLOOD PRESSURE LOW THIS AM, PT ENCOUARGED TO INCREASE FLUID INTAKE, DENIES SYMPTOMS. PT DENIES PAIN AND PARTICIPATED IN SCHEDULED THERAPIES. PT LETHARGIC AND EASILY FATIGUES FROM ACTIVITIES. DIETARY INTAKE MONITORED AND CALORIE COUNT INITIATED. PT STATES THAT SHE WILL REFUSE TO EAT IF GIVEN MEDICATIONS AT MEAL TIMES. MAX ASSIST WITH AMBULATION. TPN INFUSING PER ORDERS. IV ACCESS FLUSHES APPROPRIATE. PT NOT RECEPTIVE TO INCREASE IN PO FLUID AND NUTRITION THIS SHIFT. ACCU CHECKS ACHS. CALLS APPROPRIATELY FOR ASSISTANCE. NO HALLUCINATIONS NOTED AT THIS TIME. FALL PRECAUTIONS IN PLACE AND NURSING WILL CONTINUE TO MONITOR.
[2020-09-22 20:00] VITALS: BP 100/73
--- NOTE | 2020-09-23 00:47 | NUR ---
PT ALERT AND ORIENTED X 4. INCONT OF URINE AND STOOL. TPN INFUSING ORDERED. PT TAKING MEDS IN APPLESAUCE WITHOUT DIFFICULTY. RIGHT PICC LINE INTACT AND PATENT. PT DENIES PAIN OR DISCOMFORT. BED ALARM ON FOR SAFETY. PT HAS BEEN AWAKE MUCH OF NIGHT.
[2020-09-23 06:04] LABS: CREATININE 0.4 mg/dL (0.6-1.0); MAGNESIUM 2.2 mg/dL (1.8-2.4); PHOSPHORUS 3.6 mg/dL (2.6-4.7); POTASSIUM 3.6 mmol/L (3.5-5.1)
[2020-09-23 07:15] VITALS: BP 113/73
--- NOTE | 2020-09-23 10:37 | NUR ---
ASSUMED CARE OF PT AT 0700. PT IS A&OX4 AND VITAL SIGNS ARE STABLE. PT DENIES PAIN AND PARTICIPATED IN SCHEDULED THERAPIES. PT CONTINUES TO HAVE LOOSE WATERY STOOLS. PT ENCOUARGED TO INCREASE PO INTAKE BUT FREQUENTLY REFUSES FOOD AND FLUIDS. PT FATIGUES EASILY WITH ACTIVITY. RIGHT UPPER ARM PICC IN PLACE AND RUNNING TPN AT ORDERED RATE. CALORIE COUNT IN PLACE. BLOOD PRESSURE IMPROVED FROM YESTERDAY. FALL PRECAUTIONS IN PLACE AND NURSING WILL CONTINUE TO MONITOR.
[2020-09-23 19:31] VITALS: BP 103/67
--- NOTE | 2020-09-24 04:02 | NUR ---
PATIENT ALERT AND ORIENTED X3-4. FOLLOWS INSTRUCTIONS AND IS PLEASANT AND COOPERATIVE. INCONTINENT OF URINE, HOWEVER, CALLS OUT TO BE CHANGED. TPN INFUSING PER ORDER W/O COMPLICATION. DENIES PAIN. BS MONITORED PER ORDER. ENCOURAGING PATIENT TO DRINK MORE WATER. PATIENT TOOK MEDICATION WITH APPLESAUCE W/O SWALLOWING PROBLEMS. RESTING QUIETLY AT TIME OF NOTE. WILL MONITOR.
[2020-09-24 07:20] VITALS: BP 106/68
--- NOTE | 2020-09-24 13:28 | NUR ---
ASSUMED CARES AT 0700. PT AWAKE, ALERT AND ORIENTED*4. FLAT AFFECT, SOFT SPOKEN. HR ELEVATED, WILL CONTINUE TO MONITOR. ALL OTHER VITALS REMAIN STABLE. PT DENIES PAIN. PICC LINE ON RIGHT UPPER ARM REMAINS INTACT AND PATENT, TPN RUNNING AT 65ML/HR. PT CONTINUES TO HAVE VERY POOR APPETITE, ATE 50% OF HER BREAKFAST, REFUSED LUNCH BUT ATE GRAM CRACKERS AND PEANUT BUTTER. ENCOURAGING PO FLUIDS BUT PT TAKING ONLY SIPS AT A TIME. PT REMAINS INCONTINENT OF BLADDER, CLEANED AND BEDDINGS CHANGED. PT UP WITH 2 MAX ASSIST, REFUSED TO DO EXERCISES WITH PHYSICAL THERAPY. Q1H VISUAL CHECKS. CALL LIGHT WITHIN REACH. FALL PRECAUTIONS IN PLACE.
[2020-09-24 19:22] VITALS: BP 120/79
--- NOTE | 2020-09-25 01:54 | NUR ---
REFUSING ALL OFFERS OF FOOD. ANTIBIOTIC OPENED AND POWDER PLACED IN SMALL AMOUNT APPLESAUCE BECAUSE PATIENT WAS SURE SHE COULD NOT SWALLOW A CAPSULE THAT BIG, PREFERRED THE SPRINKLES IN CAPSULE FORM THEY WERE SMALL ENOUGH TO SWALLOW. CARAFATE GIVEN LAST. TPN INFUSING AT 65 CC PER HOUR. INCONTINENT OF URINE REQUIRING BED CHANGE AT HS. REPOSITIONING SELF IN BED, USUALLY ON HER SIDES. QUIET
[2020-09-25 06:21] LABS: ALBUMIN 1.6 g/dL (3.4-5.0); CALCIUM 8.3 mg/dL (8.5-10.1); CREATININE 0.4 mg/dL (0.6-1.0); MAGNESIUM 1.8 mg/dL (1.8-2.4); PHOSPHORUS 3.4 mg/dL (2.5-4.9); TOTAL BILIRUBIN 0.5 mg/dL (0.2-1.0); TOTAL PROTEIN 4.9 g/dL (6.4-8.2)
[2020-09-25 07:34] VITALS: BP 109/75
--- NOTE | 2020-09-25 08:32 | NUR ---
Day 2 calorie count-still eating less than 500 calories per day. Does better at breakfast and refuses lunch and dinner. Did agree to trail Ensure mixed with ice cream so will see how she does with this. Recommend appetite stimulant. Continue tpn
--- NOTE | 2020-09-25 11:01 | NUR ---
WOUND CONSULT; NO WOUNDS IDENTIFIED ONLY BLANCHABLE ERYTHEMA. DEMETRIUS SCARE IS 14 AND ALBUMIN IS 1.4. THE PATIENT NEEDS A LOW AIR LOSS PUMP FOR PRESSURE REDISTRIBUTION THERAPY. RECOMMENDATIONS; 1-LOW AIR LOSS PUMP 2-2QH TURNING 3-BARRIER CREAM TID DISCUSSED WITH RN
--- NOTE | 2020-09-25 14:18 | NUR ---
ASSUMED CARES AT 0700. PT AWAKE, ORIENTED*4 BUT FORGETFUL. FLAT AFFECT, SOFT SPOKEN. C/O ABDOMINAL DISCOMFORT, DIARRHEA NOTED *4 TIMES, HOSPITALIST NOTIFIED AND ORDERS RECEIVED. HR HIGH 90'S AT REST ABOVE 100 WITH ACTIVITY. TEMP 99.3 THIS AM. PT CONTINUES TO RECEIVE TPN VIA FREEDOM PICC LINE, IV REMAINS INTACT AND PATENT. PT EATING POORLY, ATE 100 OF HER BREAKFAST BUT LESS THAN 15% OF HER LUNCH. ENCOURAGE TO INCREASE FLUID INTAKE, PT TAKING SIPS ONLY. CONTINUES TO BE INCONTINENT OF BOWEL, CLEANED AND BEDDINGS CHANGED. PT UP WITH 1-2 MOD ASSIST, GB AND WALKER. Q1H VISUAL CHECKS. CALL LIGHT WITHIN REACH. FALL PRECAUTIONS IN PLACE
--- NOTE | 2020-09-25 16:15 | NUR ---
ASSESSMENT: CM REVIEWED CHART AND ATTEMPTED TO CONTACT PT BUT NO ANSWER AT THIS TIME. CM REACHED OUT TO PATIENS DAUGHTER TONJA WHO SHE LIVES WITH. PT LIVES WITH DAUGHTER AND HER 15 YEAR OLD GRANDSON. PT ALSO HAS ANOTHER DAUGHTER WHO CAN ASSIST IF NEEDED. PTS DAUGHTERS WORK DURING THE DAY BUT GRANDSON IS CURRENTLY HOME. PT HAS 4-5 STEPS TO ENTER THE HOME AND NO STEPS SHE HAS TO USE ONCE INSIDE. PT HAS A WALKER AT HOME, WHEELCHAIR, SHOWER CHAIR, AND GRAB BARS. DAUGHTER ASSIST HER WITH SHOWER OR ADLS IF NEEDED. PT WAS RECENTLY AT [facility] AND DISCHARGED HOME BUT DID NOT GET HH AT THAT TIME DUE TO CONCERNS ABOUT THE PANDEMIC. CM DISCUSSED HH WITH DAUGHTER TODAY AND SHE REPORTS SHE WANTS TO SEE HOW HER MOTHER PROGRESSES AND IF SHE IS STILL NEEDING HH SHE IS OPEN TO IT IF A COMPANY CAN ACCOMINDATE SENDING THE SAME PERSON PER DISCIPLINE TO HER HOME RATHER THEN MULTIPLE PEOPLE COMING OUT SHE WANTS TO LIMIT THE AMOUNT OF PEOPLE SHE HAS CONTACT WITH. CM WILL CONTINUE TO FOLLOW TO ASSIST NEEDED.
[2020-09-25 19:14] VITALS: BP 113/77
[2020-09-25 21:05] LABS: GLYCOHEMOGLOBIN (HGB A1C) 4.9 % (4.8-5.6)
--- NOTE | 2020-09-26 02:10 | NUR ---
TPN CONTINUES, PATIENT HAS VOIDED CONTINENTLY TONIGHT GETTING UP TWICE WITH ASSIST TO BSC WITH MINIMAL ASSIST. LOW AIR LOSS THERAPY, PATIENT TURNING SELF IN BED. MORE TOLERANT OF TAKING PILLS IN APPLESAUCE COMPARED TO 24 HOURS AGO BUT REFUSING NEWLY ORDERED COLESTID SINCE IT IS CERTAINLY TOO LARGE FOR HER TO SWALLOW.
[2020-09-26 05:51] LABS: ABSOLUTE NEUTROPHILS 1.7 thou/uL (1.4-8.2); BASOPHILS 0.5 % (0.0-2.0); EOSINOPHILS 0.4 % (0.0-3.0); HEMATOCRIT 24.8 % (37.0-47.0); HEMOGLOBIN 8.1 gm/dL (12.0-15.0); LYMPHOCYTES 56.6 % (24.0-44.0); MCH 30.7 pg (26.0-34.0); MCHC 32.7 g/dL (28.0-37.0); MCV 94.1 fL (80.0-100.0); MONOCYTES 6.5 % (1.0-8.0); PLATELET COUNT 124 thou/uL (150-400); RBC 2.63 mil/uL (4.20-5.00); RDW 17.3 % (10.5-14.5); WBC 4.7 thou/uL (4.0-11.0)
[2020-09-26 06:18] LABS: ALBUMIN 1.8 g/dL (3.4-5.0); CALCIUM 8.6 mg/dL (8.5-10.1); CREATININE 0.4 mg/dL (0.6-1.0); MAGNESIUM 1.6 mg/dL (1.8-2.4); PHOSPHORUS 3.8 mg/dL (2.6-4.7); POTASSIUM 4.1 mmol/L (3.5-5.1); TOTAL BILIRUBIN 0.6 mg/dL (0.2-1.0); TOTAL PROTEIN 5.2 g/dL (6.4-8.2)
[2020-09-26 08:00] VITALS: BP 102/70
--- NOTE | 2020-09-26 09:35 | NUR ---
ASSUMED CARE AT 0700. PATIENT IS ALERT AND ORIENTED X4. PATIENT AFFECT IS FLAT. PATIENT SEGURA'S, BOILERMAKER INDUSTRIAL BOILERS ARE EQUAL. LUNGS ARE CLEAR AND DEMINISHED. ABD IS SOFT WITH BSX4. PATIENT HAS HAD 3 LIQUID, YELLOW BM'S. PATIENT IS UP TO THE BSC WITH ASSIST OF 1 STAFF WITH GAIT BELT AND WALKER. APPETITE IS POOR. PATIENT CONTINUES ON TPN PER RIGHT UPPER ARM PICC LINE AT 65 CC/HR. CONTINUES ON CALORIE COUNT. PATIENT WON'T DRINK. PATIENT REFUSED SUPPLEMENT. VSS. FALL AND SAFETY PROTOCOLS IN PLACE. DENIES PAIN AT THIS TIME. CONTINUES TO PROGRESS SLOWLY TOWARDS D/C GOALS. WILL CONTINUE TO MONITER.
--- NOTE | 2020-09-26 13:19 | NUR ---
team conference: pt on ABX, IV fluids. TPN. mech soft solid and thin liquids. walked 8ft w/ mod assist w/ FWW. Dietary following d/t calorie count. pt has medicaid, so HH RN only - family will consider HH if it is same person all the time. Discharge plan: re-team.
[2020-09-26 19:28] VITALS: BP 137/117
[2020-09-26 19:43] VITALS: BP 137/117
[2020-09-26 22:00] VITALS: BP 103/62
--- NOTE | 2020-09-27 02:32 | NUR ---
ASSUMED CARE OF PT AT 1900. PT IS A&OX4, VITAL SIGNS RECHECKED THIS SHIFT AND ARE IMPROVED FROM PREVIOUSLY REPORTED SET THIS SHIFT. TPN AND TUBING CHANGED THIS SHIFT. PT UP MULTIPLE TIMES FOR BOWEL MOVEMENTS THAT ARE LOOSE AND YELLOW. NO HALLUCINATIONS REPORTED. ACCU CHECKS ACHS. PT SLEEPING AT THIS TIME. FALL PRECAUTIONS IN PLACE AND NURSING WILL CONTINUE TO MONITOR.
[2020-09-27 06:47] LABS: CREATININE 0.5 mg/dL (0.6-1.0); MAGNESIUM 1.8 mg/dL (1.8-2.4); PHOSPHORUS 3.8 mg/dL (2.6-4.7); POTASSIUM 3.9 mmol/L (3.5-5.1)
[2020-09-27 07:00] VITALS: BP 103/69
--- NOTE | 2020-09-27 10:47 | NUR ---
ASSUMED CARE AT 0700. PATIENT IS ALERT AND ORIENTED X4. PATIENT SEGURA'S, ORTHODONTIC TECHNICIAN ARE EQUAL. LUNGS ARE CLEAR AND DEMINISHED. ABD IS SOFT WITH BSX4. PATIENT CONTINUES TO HAVE LIQUID STOOLS THAT ARE YELLOW IN COLOR. G.I. IS HERE. PLAN IS TO D/C FLAGYL AND START PATIENT ON IMMODIUM AND DECREASE TPN. PLAN FOR DR. GARCIA TO START PATIENT ON REMERON/ OR SOME OTHER APPITITE STIMULANT. PATIENT ATE 50% OF BREAKFAST THIS A.M. PATIENT CONTINUES ON PO ABT'S WITHOUT A.M. PATIENT CONTINUES ON PO ABT'S WITHOUT ADVERSE AFFECTS. PATIENT CONTINUES ON TPN AT 65CC/HR. FALL AND SAFETY PROTOCOLS IN PLACE. DENIES PAIN. CONTINUES TO PROGRESS SLOWLY TOWARDS D/C GOALS. WILL CONTINUE TO MONITER.
[2020-09-27 19:51] VITALS: BP 100/68
[2020-09-28 06:04] LABS: CALCIUM 8.7 mg/dL (8.5-10.1); CREATININE 0.6 mg/dL (0.6-1.0); MAGNESIUM 1.8 mg/dL (1.8-2.4); PHOSPHORUS 3.6 mg/dL (2.6-4.7); POTASSIUM 3.9 mmol/L (3.5-5.1)
[2020-09-28 07:15] VITALS: BP 89/54
[2020-09-28 10:59] VITALS: BP 107/75
--- NOTE | 2020-09-28 12:08 | NUR ---
Daughter Mis is in agreement with HH at time of discharge. Prefers [facility] for Home Health and would like consistent caregivers. Will fax referral to [facility].
--- NOTE | 2020-09-28 17:01 | NUR ---
ASSUMED CARE OF PT AT 0700. PT IS A&OX4. TEMP ELEVATED THIS AM BUT WAS WNL ON REASSESSMENT WITHOUT MEDICATION ADMINISTERED. HYPOTENSION AND TACHYCARDIA NOTED ON ASSESSMENT, PROVIDER AWARE. PT EATING LESS THAN 50% OF ALL MEALS AND REFUSES TO INCREASE FLUID INTAKE. ACCU CHECKS ACHS. TPN STOPPED AT 0800 PER ORDERS. PT VERY WEAK AND REQUIRED ASSISTANCE TO SIT UP AND REPORTED SEVERE DIZZINESS, UNABLE TO STAND. PT REQUIRED EXTRA TIME TO TAKE PO MEDICATIONS WITH TAKING 30 MINUTE BREAK AFTER HALF OF MEDS ADMINISTERED BEFORE COMPLETING MEDICAITONS. NO REPORTED LOOSE STOOLS THIS SHIFT. FALL PRECAUTIONS IN PLACE AND NURSING WILL CONTINUE TO MONITOR.
[2020-09-28 20:10] VITALS: BP 110/81
--- NOTE | 2020-09-29 02:25 | NUR ---
TOLERATING PILLS EXCEPT FOR COLESTID WHICH SHE HAD TROUBLE SWALLOWING. BLOOD SUGAR = 109 AT HS WITH TPN RUNNING OVERNIGHT. PATIENT IS TURNING HERSELF SIDE TO SIDE AND IS ON LOW AIR LOSS MATTRESS THERAPY. PLEASANT, QUIET
[2020-09-29 08:12] VITALS: BP 123/82
[2020-09-29 09:38] LABS: CREATININE 0.5 mg/dL (0.6-1.0); MAGNESIUM 2.1 mg/dL (1.8-2.4); PHOSPHORUS 3.7 mg/dL (2.5-4.9); POTASSIUM 4.6 mmol/L (3.5-5.1)
[2020-09-29 19:08] VITALS: BP 101/75
--- NOTE | 2020-09-29 19:49 | NUR ---
ASSUMED CARE OF PT AT 0700. PT IS A&OX4 AND VITAL SIGNS ARE STABLE. PT DENIES PAIN. PT REPORTED A "GOOD DAY". PT HAD MORE ENERGY, TRANSFERED WITH STAND BY ASSISTANCE, ATE AT LEAST 20% WITH ALL MEALS AND TOLERATED PO MEDICATIONS EASILY. PT CALLS FOR ASSISTANCE APPROPRIATELY. PT PLACED IN ISOLATION UNTIL RESULTS OF ORDERD COVID TEST RESULT. PT DENIES S/S OF COVID AT THIS TIME, BUT HAD A SINGLE ELEVATED TEMP ON 09/28/20 WHICH RESOLVED WITHOUT MEDICATION. FALL PRECAUTIONS IN PLACE AND NURSING WILL CONTINUE TO MONITOR.
--- NOTE | 2020-09-30 02:17 | NUR ---
TURNING SELF IN BED, UP TO BSC FOR VOID WITH 1P ASSIST. DECLINED COLESTID LATE LAST EVENING. BLOOD SUGAR 128 AT TIME OF INCREASE OF TPN RATE FROM 70 TO 142. MOISTURE BARRIER TO BUTTOCKS ORDERED. MEDS WITH APPLESAUCE, DECLINED SIPS OF WATER.
[2020-09-30 07:07] LABS: CALCIUM 9.1 mg/dL (8.5-10.1); CREATININE 0.6 mg/dL (0.6-1.0); MAGNESIUM 2.1 mg/dL (1.8-2.4); PHOSPHORUS 3.8 mg/dL (2.6-4.7); POTASSIUM 3.7 mmol/L (3.5-5.1)
[2020-09-30 07:50] VITALS: BP 106/72
--- NOTE | 2020-09-30 14:46 | NUR ---
Alert and orientated, calm, cooperative. Delayed some meds X 1 hr per pt request. Breath sounds clear. Reg HR auscultated. Color pink with brisk capillary refill and palpable peripheral pulses. Voiding per BSC large amts yellow urine and liquid yellow stool. Active bowel sounds over soft, flat abdomen. Able to ambulate few steps with assistance and gait belt. Fatigues easily, sleeping most of day, did eat about 15% lunch independently but then stated her stomach was bothering her. Refused ondansetron. Currently resting in bed without s/o distress.
[2020-09-30 20:00] VITALS: BP 127/92
--- NOTE | 2020-10-01 03:26 | NUR ---
Assumed care of patient this pm shift. Patient calm and cooperative. Resting in bed. Alert and oriented x4. Takes medications whole with thin fluids. Refused colestipol hcl. Assist x1 to the bed side commode. Patient had large runny stool. TPN started late this pm shift. Assessment shows no signs of acute distress. Falls precautions in place. Denies pain. We will continue to monitor per hospital policy.
[2020-10-01 06:15] LABS: CALCIUM 9.1 mg/dL (8.5-10.1); CREATININE 0.7 mg/dL (0.6-1.0); POTASSIUM 3.9 mmol/L (3.5-5.1)
[2020-10-01 08:00] VITALS: BP 93/63
--- NOTE | 2020-10-01 10:24 | NUR ---
ASSUMED CARE AT 0700 THIS MORNING. PT. IN BED. SHE WAS COOPERATIVE WITH MEDICATIONS, EATING. SHE IS EATING FAIR. SHE GOT UP TO THE BEDSIDE COMMODE. SHE HAD A LIGHT BROWN LOOSE STOOL. LUNGS CTA, ABD ROUNDED AND SOFT WITH + BOWEL SOUNDS.
[2020-10-01 20:55] VITALS: BP 120/90
--- NOTE | 2020-10-02 02:53 | NUR ---
PT AOX4. PT REPORTS 3/10 PAIN IN ABDOMEN, WORSENED WITH EATING, TACTILE STIMULATION, AND ACTIVITY. PT HAS PRN PO APAP Q4HR AVAILABLE. PT REPORTS SOB WITH EXERTION ON ROOM AIR. PT NOTED TO HAVE LOOSE COUGH WITH FATIGUE. PT WITH LOOSE, DIARRHEA LIKE STOOLS, PT REPORTS CHRONIC DIARRHEA BASELINE FUNCTION. ONCALL PRESENTATION TEAM MEMBER NOTIFIED OF SYMPTOMS AND 09.29.20 NEGATIVE COVID RESULT, CHART TO BE REVIEWED. PT TOLERATING PO INTAKE OF FLUIDS AND LOW RESIDUE, LOW FAT DIET WITHOUT ISSUE. PT DENIES NAUSEA. PT AMBULATING WITH X1 ASSIST TO BEDSIDE COMMODE. PT NOTED TO HAVE GENERALIZED WEAKNESS. PT REPORTS NUMBNESS AND TINGLING IN BLE. CAPILLARY REFILL INTACT, LESS THAN 3SEC IN ALL EXTREMITIES. PT RESTING IN BED THROUGHOUT SHIFT, FREQUENT REPOSITIONING ENCOURAGED. PT NOTED TO SHIFT INDEPENDENTLY WHILE IN BED. PT ENCOURAGED TO NOTIFY STAFF FOR ALL NEEDS, CALL LIGHT WITHIN REACH, BED ALARM ON, BED IN LOWEST POSITION, FREQUENT MONITORING WILL CONTINUE.
[2020-10-02 06:25] LABS: CALCIUM 8.6 mg/dL (8.5-10.1); CREATININE 0.7 mg/dL (0.6-1.0)
[2020-10-02 07:20] VITALS: BP 97/66
--- NOTE | 2020-10-02 09:24 | NUR ---
PT AWAKE THIS AM. PT FINISHED TPN AT THIS TIME, FLUSHED PICC LINE WITH SALINE. PT TALKING TO DOMINIC ROBERTS. PT SAID SHE HAS HAD A GASTIC BYPASS 07/2019 AND IS EATING 50% OF HER TRAY. SHE SAID SHE IS TRYING, SHE IS WANTING OFF THE TPN ALSO AND KNOWS THATS A BARRIER TO GOING HOME. PT STATED SHE IS IN THE HOSPITAL DURING BIRTHDAYS OF FAMILY MEMBERS AND HOLIDAYS. SHE SAID THAT HER GRANDKIDS BDAY IS COMING UP. PT ALSO REFUSED COLESTID DUE TO PILLS ARE TOO BIG EVEN CUT IN HALF.
--- NOTE | 2020-10-02 13:42 | NUR ---
WOUND CARE F/U; THE WOUNDS ARE HEALED. THERE IS NO NEED TO FOLLOW. i WILL DISCHARGE THE PATIENT FROM WOUND CARE AT THIS TIME. DISCUSSED WITH KAITLYNN
--- NOTE | 2020-10-02 18:02 | NUR ---
PT STILL SLEEPING AT DINNER TIME. ASKED PT IF SHE WANTED TO EAT DINNER. PT RESTING WITH EYES CLOSED.
[2020-10-02 20:33] VITALS: BP 105/77
--- NOTE | 2020-10-02 22:53 | NUR ---
ASSUMED CARE OF PT AT 1915. PT IS A&OX4. IS ON ROOM AIR. DENIES PAIN. IS STABLE. IS UP WITH 1 STANDBY ASSIST, GB TO BSC. FALL PRECAUTIONS & HOURLY ROUNDING CONTINUED THIS SHIFT. VITALS ASSESSED. LABS REVIEWED. PT IS ABLE TO TURN SELF. IS EATING ADEQUATELY. PT HAS ATE 1/2 OF A TURKEY SANDWHICH & HELENA CRAKERS. IS DRINKING ADEQUATELY ALSO. PT IS CURRENTLY ASLEEP. CALL LIGHT WITHIN REACH. IS ABLE TO TURN SELF IN BED. WILL CONINTINUE TO MONITOR.
[2020-10-03 06:53] LABS: CALCIUM 8.9 mg/dL (8.5-10.1); CREATININE 0.6 mg/dL (0.6-1.0); MAGNESIUM 2.2 mg/dL (1.8-2.4); PHOSPHORUS 3.9 mg/dL (2.5-4.9); POTASSIUM 4.4 mmol/L (3.5-5.1)
[2020-10-03 07:36] VITALS: BP 125/98
[2020-10-03 08:40] LABS: HEMATOCRIT 30.3 % (37.0-47.0); HEMOGLOBIN 9.7 gm/dL (12.0-15.0); MCV 97.1 fL (80.0-100.0); RBC 3.12 mil/uL (4.20-5.00); RDW 17.2 % (10.5-14.5); WBC 5.6 thou/uL (4.0-11.0)
--- NOTE | 2020-10-03 12:47 | NUR ---
PT ALERT AND ORIENTED TIMES FOUR, WITH SOMEWHAT BLUNTED AFFECT. VSS. PT DENIES PAIN. PT TOLERATES MEDS AND MEALS. PT WORKED WELL WITH PT/OT. PT PROGRESSING TOWRADS POC GOALS.
--- NOTE | 2020-10-03 13:03 | NUR ---
team conference: pt admitted to rehab w/ encephalopathy dx. pt has unsteady gait, pt trans w/partial to moderate assist. pt gait is 50 ft x 2 w/ fww. pt is on mechanical soft diet w/thin liquids. pt has moderate cognitive deficit, and mod to severe memory deficit. d/c plan: target d/c date 10/13; friday. HH: nursing.
--- NOTE | 2020-10-03 16:46 | NUR ---
FAXED REFERRAL TO [facility] RECEIVED CONFIRMATION WILL F/U WITH IN THE AM.
[2020-10-03 19:20] VITALS: BP 108/83
--- NOTE | 2020-10-04 00:17 | NUR ---
TURNING SELF TO LEFT SIDE. UNHAPPY THAT SHE WAS UNABLE TO TOLERATE MORE THAN A FORKFUL OF THE ROAST LAST EVENING. ABLE TO TOLERATE SOME VANILLA ICE CREAM. TAKING MEDS WITH APPLESAUCE AND ONLY A SIP OF WATER.
--- NOTE | 2020-10-04 15:00 | NUR ---
ASSUMED CARE AT 0700. PT IS ALERT AND ORIENTATED. SLEPT FAIRLY WELL. DENIES ANY PAIN. POOR APPETITE. ON CALORIE COUNT. BHANU KILGORE EDUCATED PT ON VARIOUS FOOD AND CHOICES. PT UNABLE TO TAKE LARGE MEDS AND SPOKE TO PHARMACIST REGARDING HER COLESTIPOL AND POSSIBLY CHANGE TO A POWDERED FORM. PT ATE HER MEALS 25 - 50% OF HER MEALS. PARTICIPATING WITH THEREAPY MUCH TOLERATED.
[2020-10-04 19:10] VITALS: BP 104/71
--- NOTE | 2020-10-05 01:39 | NUR ---
UP TO BSC WITH MINIMAL ASSIST FOR VOID AND YELLOW TINTED BM. PRIOR TO GOING TO SLEEP AT 10 PM, PATIENT ASKED FOR AND HAD A BAG OF OUR BAKED CHIPS, HALF OF A SANDWICH, PLUS A PACK OF SUGAR IN HER CUP OF TEA.
[2020-10-05 08:00] VITALS: BP 112/78
--- NOTE | 2020-10-05 11:48 | NUR ---
CM FAXED REFERRAL TO [facility]. P. [phone] F. [phone].
--- NOTE | 2020-10-05 14:23 | NUR ---
ASSUMED CARE AT 0700. PT IS ALERT AND ORIENTATED. SLEPT FAIRLY WELL. DENIES ANY PAIN. COMPLAINED OF STOMACH DISCOMFORT. HAD COUPLE OF LOOSE STOOLS. APPETITE FAIR. ENC TO TAKE SMALL MEALS FREQUENTLY. PT REQUESTED HER AM PILLS DIVIDED AND SPACED OUT. PARTICIPATING IN PELON THERAPY. [facility] WOUND CARE TO BOTTOM HEALING AND BARRIER GUARD APPLIED. CONT TO MONITOR.
[2020-10-05 19:31] VITALS: BP 116/82
--- NOTE | 2020-10-06 00:34 | NUR ---
PATIENT HAS BEEN A/0X4. SHE WAS UP TO [facility] AND HAD LARGE DIARHEA STOOL. PATIENT WITH SOME STOMACH DISCOMFORT WHICH IMPROVED AFTER STOOL. PATIENT TOOK HER MEDS WHOLE WITH YOGURT TONIGHT. SHE ATE HALF A TURKEY SANDWICH FOR AN HS SNACK. SHE HAS A PICC LINE IN RIGHT UPPER ARM THAT IS SALINE LOCKED. PATIENT IS ASSIST X 1. SHE DENIES PAIN. PATIENT IS DAILY WT AND CONTINUES TO TRY AND EAT 5 TO 6 SMALL MEALS A DAY WITH SNACKS IN BETWEEN. BED IN LOW POSITION. ROUTINE ROUNDS TO ASSESS STATUS AND SAFETY OF PATIENT. CONTINUING TO MONITOR.
[2020-10-06 08:00] VITALS: BP 105/73
--- NOTE | 2020-10-06 12:57 | NUR ---
SPOKE WITH CATERINA IN INTAKE AT [facility] THEY CAN ACCEPT PT WILL DC 10/13.
--- NOTE | 2020-10-06 13:41 | NUR ---
Nutrition: day 3 calorie count shows pt intake has shown significant improvement but still inadequate. Pt consumed 960 kcals and 53 gm protein this day meeting 66% kcal needs, 73% protein needs. Pt having small meals/snacks delivered daily to promote 5-6 small meals/daily. Prior day calorie count pt met 43% kcal needs, 27% protein needs. Diet has been upraded per ST and suspect this may have helped intake. Weights continue to decline and unsure pt will be able to meet needs via oral intake alone. Question whether option of J tube could be investigated again. RD is discontinueing calorie count going into weekend however will continue to monitor intakes weight trends and nutritional parameters closely.
--- NOTE | 2020-10-06 16:50 | NUR ---
PATIENT WAS IN BED AWAKE WHEN CARE ASSUMED THIS MORNING, SHE IS ALERT, AND ORIENTED X 3-4 ABLE TO VOICE NEED. PATIENT TOOK MEDICATION WHOLE, WELL TOLERATED, SPEECH THERAPIST PRESENT WATCHING PATIENT SWALLOW MEDS. PATIENT CAN BE IRRITABLE, AND HOSTILE TOWARDS STAFF AT TIMES. SHE LATER APPOLIGIZED "MY DAUGHTER THINK I WAS TOO HARD ON YOU THIS MORNING". LCTA, RESP EVEN/UNLABORED, NO SOA/CYANOSIS. BS+X4, ABD SOFT, NON-TENDER TO TOUCH. PATIENT IS NON-COMPLIANT WITH SAFETY PRECAUTIONS, SHE IS IMPULSIVE, GETS OUT OF BED BEFORE CALLING FOR HELP, SAFETY EDUCATION REITERATED, SHE VERBALIZES UNDERSTANDING. PICC LINE IN PLACE TO RIGHT UPPER ARM. PATIENT DENIES HAVING PHYSICAL PAIN. SNACKS OFFERED NEEDD, SHE REQUESTED FOR ONE BAG OF CHIPS, AND TWO PEERS THIS EVENING, DIATARY NOTIFIED. NO SIGN OF ACUTE DISTRESS NOTED AT THIS TIME, CALL LIGHT IN REACH, WILL MONITOR FOR SAFETY.
[2020-10-06 20:00] VITALS: BP 116/79
--- NOTE | 2020-10-07 03:47 | NUR ---
Assumed care this pm shift. Patient calm and cooperative, in good spirits. Patient is alert and oriented x4. Takes medications whole with thin fluids. Ambulates with assistance to the toilet. Continent of bowel and bladder. Falls precautions in place. Patient is concerned about her current weight and feels as though she is not getting enough calories. Assessment shows no signs of acute distress. We will continue to monitor per hospital policy.
[2020-10-07 07:20] VITALS: BP 98/72
[2020-10-07 14:42] LABS: HEMATOCRIT 28.8 % (37.0-47.0); HEMOGLOBIN 9.2 gm/dL (12.0-15.0); MCH 31.2 pg (26.0-34.0); MCHC 31.8 g/dL (28.0-37.0); MCV 98.2 fL (80.0-100.0); RBC 2.93 mil/uL (4.20-5.00); RDW 16.4 % (10.5-14.5); WBC 4.9 thou/uL (4.0-11.0)
[2020-10-07 14:50] LABS: CALCIUM 8.7 mg/dL (8.5-10.1); CREATININE 0.7 mg/dL (0.6-1.0); MAGNESIUM 1.8 mg/dL (1.8-2.4); POTASSIUM 3.3 mmol/L (3.5-5.1)
[2020-10-07 19:23] VITALS: BP 96/65
--- NOTE | 2020-10-07 19:24 | NUR ---
Alert and orientated X4. Much more interactive today sharing opinions and initiating conversations. Becomes fatigued when out of bed to toilet. Breath sounds clear. Reg HR 90s-110 auscultated. Color pale pink with brisk capillary refill and palpable peripheral pulses. Attempting to eat small frequent meals with moderate success. Ate approximately 10% of breakfast, 50% of AM snack, 40% of lunch, 50% of afternoon snack and 50% of dinner. Large yellow liquid stools after every meal except dinner. Gave loperamide at 10AM and then spoke with Dr. Ward. Changed dose to before Q meal. Hyperactive bowel sounds over soft, flat abdomen with excess skin. Double lumen PICC line per R upper arm, site soft and flat, both lumen withdraw and flush without diff. Labs drawn per cathetar per order, Dr. Ward notified of results. 40meq KCL hung and infusing per pump to infuse over 4 hrs, infusion should be complete by 2029. Steady gait but is impulsive at times.
--- NOTE | 2020-10-08 01:14 | NUR ---
TAKING MEDS IN YOGURT, THEN FINISHING THE 4 OUNCE YOGURT. APPRECIATES ICED TEA WITH PACK OF SUGAR, STATES SHE CANNOT TASTE THE SUGAR IN TH TEA. 2 SEMI-LIQUID YELLOW STOOLS WITH SBA ASSIST UP TO BSC.
[2020-10-08 05:27] LABS: HEMATOCRIT 28.7 % (37.0-47.0); MCH 30.8 pg (26.0-34.0); MCHC 31.5 g/dL (28.0-37.0); MCV 97.7 fL (80.0-100.0); RBC 2.93 mil/uL (4.20-5.00); RDW 16.8 % (10.5-14.5); WBC 5.5 thou/uL (4.0-11.0)
[2020-10-08 05:47] LABS: CALCIUM 8.6 mg/dL (8.5-10.1); CREATININE 0.6 mg/dL (0.6-1.0); MAGNESIUM 1.9 mg/dL (1.8-2.4); POTASSIUM 3.3 mmol/L (3.5-5.1)
[2020-10-08 07:46] VITALS: BP 105/75
--- NOTE | 2020-10-08 16:53 | NUR ---
VASCULAR ACCESS NURSE ROUNDING, THIS PATIENT IS NO LONGER ON IV MEDS- SUGGEST REMOVAL OF LINE TO PREVENT POSSIBLE BLOOD STREAM INFECTION
--- NOTE | 2020-10-08 17:58 | NUR ---
ASSUMED CARE AT 0700 TODAY. PT. IN HER ROOM RESTING. SHE SAT UP IN BED FOR MEALS, OR IN A CHAIR. SHE HAD SEVERAL LOOSE YELLOW STOOLS TODAY. SHE RECEIVED LOPERMIDE AT NOON. SHE STATED THAT DID HELP HER. THIS AFTERNOON SHE GOT UP TO URINATE AND THEN C/O CHEST PAIN SHE WAS GETTING UP. HRR UPON AUSCULTATION. DR. ARNETT NOTIFIED. HE ORDERED A TOPONIN AND EKG, BOTH RETURNED WNL. NOTIFIED OF THE SAME. PT. HAS BEEN PLEASANT AND COOPERATIVE WITH ALL MEDICATIONS, ASSESSMENTS AND TREATMENTS TODAY.
[2020-10-08 19:48] VITALS: BP 106/72
--- NOTE | 2020-10-08 22:00 | NUR ---
CONCERNED ABOUT CHEST PAIN EARLIER TODAY, REASSURED THAT TROPONIN WAS LOW AND EKG ESSENTIALLY NORMAL, STATES THAT SHE HAS USED NITRO TABS BEFORE, USUALLY NOT NEEDING ALL 3. EATING HALF SANWICH, TAKING PILLS WITH YOGURT AND SUGAR IN HER TEA TO ADD CALORIES. 2 LOOSE YELLOW STOOLS THIS EVENING, DID NOT WANT ANOTHER DOSE OF IMMODIUM YET. PLAN ANOTHER (DAILY) WEIGHT AND BLOOD DRAW IN AM
[2020-10-09 07:15] VITALS: BP 112/74
--- NOTE | 2020-10-09 07:44 | EKG ---
[address] [place] [address] ELECTROCARDIOGRAM REPORT Name: BIPIN RUBI Room #: 505-P ADM IN M.R.#: [id number] Admission: 09/21/20 Attend Phys: Geremias Valadez MD Discharge: Date of : 58 Report #: [id number] [facility] Test Date: 2020-10-08 Test Time: 16:45:33 Pat Name: BIPIN RUBI Department: Room: [facility] Gender: F Strategy Associate: : 1960 Requested By: Blair Ward Order Number: [id number] MD: James Burks Measurements Intervals [place] Rate: 98 P: 73 PA: 141 QRS: -43 QRSD: 74 T: 51 QT: 350 QTc: 447 Interpretive Statements Sinus rhythm Left axis deviation Low voltage QRS Poor R wave progression Compared to ECG 09/08/2020 17:59:29 No significant change was found Electronically Signed On 10-09-2020 7:44:26 CLAIMS PROCESSOR by James Burks [email or web address] <ELECTRONICALLY SIGNED> By: James Burks MD, [facility] 10/09/20 0744 44 James Burks MD, FAC /EPI
--- NOTE | 2020-10-09 10:20 | NUR ---
PT CARE ASSUMED AT 0700. A&Ox4. PT VERY WEAK AND WILL LAY IN BED IF NOT REQUIRED TO GET UP WITH THERAPY. PT REQUESTED HER IMMODIUM WITH ALL MEAL. WHEN TAKING PILLS WITH YOGHURT EVELYNE WILL "PEP TALK" HERSELF INTO FINISHING IT BECAUSE SHE KNOWS THAT SHE NEEDS THE INTAKE. SMALL FREQUESNT MEALS OFFERED. VITALS STABLE. FALL PROTOCOL IN PLACE. CALL LIGHT IN REACH. PICC LINE DOUBLE LUMEN. FLUSHES AND DRAWS WELL. WILL CONTINUE TO MONITOR.
--- NOTE | 2020-10-09 11:07 | NUR ---
Received consult. DOMINIK reviewed chart. Pt had voiced concerns regarding paying her bills while in the hospital. SW placed call to pt's room. Spoke briefly with pt until therapy came to work with her. SW to follow up with pt at a later time. Discharge home with Gloria METZGER is planned for Friday, 10/12. DOMINIK is following to assist as needed with discharge planning.
--- NOTE | 2020-10-09 14:41 | HC ---
[facility] [place] [address] CONSULTATION Name: BIPIN RUBI Room #: 505-P [facility] IN M.R.#: [id number] Admission: 09/21/20 Attend Phys: Geremias Valadez MD Discharge: Date of : 58 Report #: [id number] THIS REPORT FOR: cc: ALIX - Monica family physician/PCP ALIX - Monica family physician/PCP Blas Adhikari PhD ~ DATE OF SERVICE: 09/30/2020 NEUROBEHAVIORAL STATUS EXAM. ATTENDING PHYSICIAN: Geremias Valadez MD MEDICAL STAFFING COORDINATOR: Blas Adhikari, PhD CLINICAL PRESENTATION: The patient is a 60-year-old female admitted to the rehabilitation unit for a comprehensive inpatient rehabilitation program to improve functional mobility, activities of daily living and self-care secondary to deficits from altered mental status. She initially presented to the hospital with generalized weakness, decreased appetite and increased urinary frequency. She was noted to have a metabolic encephalopathy. CT scan was negative. The patient had severe protein-malnutrition. She had undergone a previous gastric bypass in 2019. PAST MEDICAL HISTORY: Includes a bipolar disorder and schizophrenia. Her assessment on admission to the rehabilitation unit is toxic metabolic encephalopathy, severe protein-calorie malnutrition, electrolyte abnormalities, diabetes mellitus type 2 with peripheral neuropathy, hypertension, hyperlipidemia, anemia and schizophrenia, bipolar disorder. Neuropsychological consultation was requested to provide assistance in the assessment of cognitive and emotional status and provide recommendations and services. Prior to this most recent admission, the patient reports that she was living with her daughter and grandson. She has 2 biological children and 6 stepchildren. The patient has two living brothers and sisters. Her last grade completed is 11th. 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 She reports having been independent with basic and instrumental activities of daily living. However, driving has been discontinued. She was managing her medications and bill payment. TECHNIQUES UTILIZED: Clinical interview, review of medical records, staff consultation and behavioral observation, mini mental status exam 2 standard version. [facility] [address] [place] [address] CONSULTATION Name: BIPIN RUBI Room #: 505-P [facility] IN [facility].#: [id number] Admission: 09/21/20 Attend Phys: Geremias Valadez MD Discharge: Date of : 58 Report #: [id number] EXAMINATION FINDINGS: The patient was alert and cooperative with the assessment. She describes her symptoms to include anxiety and a history of depression. However, she reports not feeling depressed currently. She describes difficulty with sleep and appetite. She states the food does not taste good. Energy level is poor. Her performance on the MMSE 2 brief version was extremely low with a raw score of 11, T score of 25, percentile rank of 1. She was 3/3 for initial registration, 5/5 for orientation to time, 3/[address] and 0/3 for immediate recall of 3 items after a brief time delay and distraction. Performance on the MMSE 2 standard version was in the borderline range with a raw score of 21 of 30, which is a T score of 32, percentile rank of 4. The patient was 1/5 for serial 7's. She could read and follow single command and dictate a sentence. Impairment is primarily noted with immediate recall and concentration. DIAGNOSTIC IMPRESSION: Delirium, hypoactive, acute (possibly a result of malnutrition and poor self managment following gastric bypass surgery). The patient was managing her own medications and nutrition. She does not indicate having been taking any vitamin/nutritional supplements typically used following gastric bypass. Neurocognitive disorder -- extent to be determined, likely moderate. Cannabis use disorder -- continuous. Unspecified depressive disorder. RECOMMENDATIONS: Further consultation with the patient's family to clarify mood/behavior disorder. Her mental state upon admission to the hospital was likely a delirium secondary to metabolic disorder, which has been remediated. Occasionally, without proper nutrition, patients with gastric bypass surgery can suffer from a Wernicke's type of encephalopathy. Dietary consultation will be helpful for the patient and family to clarify nutritional needs. Patient has a reported history of mental disorder, and does not indicate having taken any medication or receiving ongoing treatment. Psychiatric management of medication for mood/behavior disorder is indicated. Follow up [address] [address] CONSULTATION Name: BIPIN RUBI Room #: 505-P [facility] IN M.R.#: [id number] Admission: 09/21/20 Attend Phys: Geremias Valadez MD Discharge: Date of : 58 Report #: [id number] neuropsychological assessment to clarify cognitive status upon stabilization of her medical condition. Thank you very much for allowing me to provide the consultation on this patient. <ELECTRONICALLY SIGNED> By: Blas Adhikari, PhD 10/09/20 1441 1944 44 Blas Adhikari, PhD /nt
[2020-10-09 19:35] VITALS: BP 105/71
--- NOTE | 2020-10-09 23:57 | NUR ---
PT HAS BEEN SITTING UP IN BED WATCHING TV TONIGHT. SHE ATE A BAG OF BAKED LAY'S POTATO CHIPS. SHE HAS BEEN DRINKING TEA TONIGHT. HE FACE LOOKS MARINELLI AND BRIGHTER AND HER SPIRITS ARE UP. SHE WAS EXCITED ABOUT THE 1 LB WT GAIN SHE HAD OBTAINED. SHE DECLINED USING THE YOGURT TONIGHT WITH HER HS MEDS. SHE SAID SHE JUST WANTED TO TAKE THEM WITH WATER TONIGHT. SHE SAT STRAIGHT UP IN BED AND TOOK THE MEDS WITHOUT INCIDENT. PATIENT HAS HAD 2 WATERY DIAHREA STOOLS TONIGHT. SHE HAS A HX OF GASTRIC BYPASS IN 2019. BARRIER CREAM BEING APPLIED TO SACRAL AREA WHEN SHE IS UP TO [facility] [place] WITH ASSIST TO VOID OR HAVE A BM. PATIENT DENIES PAIN THIS EVENING. SHE HAS BEEN PLEASANT AND COOPERATIVE. PICC LINE INTACT. PATIENT TO D/C TO HOME WITH ON MONDAY 08/13 PER NOTE. VSS. CONTINUING TO MONITOR. CONTINUING TO ASSESS PATIENT FOR SAFETY AND STATUS OF PATIENT. BED ALARM IS ON.
[2020-10-10 07:20] VITALS: BP 102/76
--- NOTE | 2020-10-10 09:27 | NUR ---
PT SITTING IN CHAIR IN ROOM. PT HAD MED GREEN, SOFT, AND LOOSE BM. ADM LOPERAMIDE 2MG PO FOR LOOSE STOOL. PT STOOL IS GETTING THICKER. PT UP WITH WALKER FOR STAND-BY ASSIST. PT DENIES ANY PAIN. PT DENIES NAUSEA WITH EATING. MENTIONED TO PT TO EAT MORE PROTIEN AND LESS CARBS SUCH SANDWHICH MEAT AND CHEESE INSTEAD OF ALL THE BREAD. PT ASKED IF WE HAD CRACKERS, MENTIONED PUTTING BUTTER ON CRACKERS ALSO.
--- NOTE | 2020-10-10 11:38 | NUR ---
CM INFORMED PT AND DTR, LAURA MAJOR WILL CONTACT PT AT HOME TO ARRANGE VISITS. AND, [facility] CAPACITY W/MEDICAID PT SO UNABLE TO ACCEPT PT ONTO SERVICE. PT AND MORIAH AGREEABEL TO PLAN. MORIAH CAN PICK PT UP AFTER 3PM DT WORK SCHEDULE, BUT WILL CHECK TO SEE IF HER SISTER IS ABLE TO PROVIDE TRANSPORTATION.
--- NOTE | 2020-10-10 12:53 | NUR ---
team conference: pt admitted wt dx of metabolic encephalopathy. picc scheduled to be removed. pt appetite has improved. gait 250ft standby w/fww. mild - mod cog, and mod memory deficit. pt will need assistance setting up medication - st will contact dtr. discharge plan is for friday, w/ maame wilson, Rn only d/t medicaid.
--- NOTE | 2020-10-10 16:33 | NUR ---
DISCONTINUED PICC LINE TO RT ARM. NO SIGNS OF REDDNESS OR SWELLING. APPLIED GAUZE OVER INSERTION AREA AND APPLIED TEGADERM.
--- NOTE | 2020-10-10 17:59 | NUR ---
PT UP TO BATHROOM TO HAVE ANOTHER STOOL. ADM IMMODIUM 2MG PO FOR LOOSE STOOL.
[2020-10-10 19:53] VITALS: BP 104/70
--- NOTE | 2020-10-11 01:37 | NUR ---
PATIENT IS ALERT X 4. SKIN WARM AND DRY.RESP EVEN AND UNLABORED. HAD GASTRIC BYPASS AND HAD WT LOSS. TAKES CARAFATE FOR ESOPHAGUS ULCER. NO EDEMA NOTED. HAS IMMODIUM FOR LOOSSE STOOLS. HAS PAIN IN HER LEGS. ON ROOM AIR. SOME ANXIETY NOTED. UP WITH WALKER WITH 1 PERSON ASSIST. METABOLIC ISSUES ARE SOLVED. LUNGS CTA. TAKES REGULAR DIET. CONT PLAN OF CARE.
[2020-10-11 08:00] VITALS: BP 120/84
--- NOTE | 2020-10-11 10:03 | NUR ---
PT DID NOT REMEMBER TO CALL FOR 0900 MEDS, BUT WHEN RN ENTERED THE ROOM, PT NOTED THAT SHE FORGOT TO CALL. SHE WAS ABLE TO STATED THE EXACT MEDS THAT WERE DUE HOWEVER, AND STATED THAT HER MORNING ROUTINE WITH THERAPIES HAD DISTRACTED HER FROM THE SCHEDULE.
--- NOTE | 2020-10-11 15:26 | H ---
[facility] [place] [address] HISTORY AND PHYSICAL Name: BIPIN RUBI Room #: 505-P ADM IN M.R.#: [id number] Admission: 09/21/20 Attend Phys: Geremias Valadez MD Discharge: Date of : 58 Report #: [id number] THIS REPORT FOR: cc: ALIX - No family physician/PCP FAM - No family physician/PCP Geremias Valadez MD ~ DATE OF SERVICE: 09/21/2020 HISTORY OF PRESENT ILLNESS: The patient is a 60-year-old female, who was admitted with complaints of altered mental status, generalized weakness, poor appetite, increased urinary frequency. She has had increasing weakness and became significantly altered with mental status and almost unresponsive and thus her daughter brought her into the Emergency Room. She was admitted on 09/08/2020 to the [facility]. She was noted to have a metabolic encephalopathy with CT of the head negative. She was noted to have severe protein malnutrition. The patient underwent a previous gastric bypass in 2019. She was seen by Gastroenterology as well as by Surgery. She was seen by Neurology, thought to have a possible neuropathy and apparently had an extensive workup at [facility]. Further clarification revealed that she had a prior history of schizophrenia and bipolar disorder. The patient underwent an EGD revealing anastomotic ulcer and jejunal polyp. PPI, Carafate were continued. She was not eating much, so TPN was started. Per Surgery, no J-tube at this point. She continued to show some improvement overall as far as her mental status and her overall medical condition and the hope is that should be able to be tapered off the TPN in a fairly short order. She has been admitted for acute in-hospital inpatient rehabilitation. She is eating in small amounts and we have been encouraging that. PAST MEDICAL HISTORY: Her prior medical history includes, we noted bipolar disorder and schizophrenia. She has had problems with hallucinations. She has a history of diabetes mellitus, obesity, status post gastric bypass, peripheral neuropathy, hypertension, hyperlipidemia, vitamin D deficiency. MEDICATIONS: Please see the full medication listing. ALLERGIES: TRAZODONE. SOCIAL HISTORY: The patient lives with her daughter, town home 5-6 stairs to enter. She used a walker and a wheelchair prior to admission, had bilateral lower extremity numbness. REVIEW OF SYSTEMS: No complaints of chest pain, shortness of breath, abdominal discomfort. PHYSICAL EXAMINATION: [facility] [address] [place] [address] HISTORY AND PHYSICAL Name: BIPIN RUBI Room #: 505-P [facility] IN M.R.#: [id number] Admission: 09/21/20 Attend Phys: Geremias Valadez MD Discharge: Date of : 58 Report #: [id number] GENERAL: The patient is a 60-year-old -Burm[place] female, somewhat frail in appearance, was seen earlier. She was in no distress. VITAL SIGNS: Last recorded temperature 98.2, pulse 90, respirations 20, blood pressure 90/45. NEUROLOGIC: She is alert. She is definitely slow in her responses, but does follow basic one-step commands. There is noted some hallucinations earlier per nursing. HEENT: Facies appeared symmetric. CHEST: Sounded clear to auscultation. CARDIAC: Regular rate and rhythm. ABDOMEN: Bowel sounds positive, nontender. GENITOURINARY AND RECTAL: Deferred. EXTREMITIES: She has functional range of motion and strength of the upper and lower extremities, I would grade them a 3+/5. She is on TPN. Transfers are mod assist. Gait 12 feet, max assist with a front-wheeled walker. She has been mod assist with lower body dressing. Speech has been following her regarding swallowing, which she is on a mechanical soft, thin liquid diet. ASSESSMENT: This is a 60-year-old female with the following problem list: 1. Toxic metabolic encephalopathy. 2. Severe protein-calorie malnutrition, on total parenteral nutrition. Encouraging p.o. diet. 3. Electrolyte abnormalities. 4. Diabetes mellitus type 2 with peripheral neuropathy. 5. Hypertension. 6. Hyperlipidemia. 7. Anemia. 8. Schizophrenia, bipolar disorder. PLAN: The patient has been admitted for acute in-hospital inpatient rehabilitation. From a postadmission physician evaluation perspective, there are no relevant changes since the preadmission screening. Please see the above noted review of prior and current medical and functional conditions and comorbidities. Please see the patient's previous and current functional status. As far as risk of complication, she has multiple medical comorbidities as noted above. Initial plan of care involves the interdisciplinary acute inpatient rehabilitation program. Measurable functional goals would be for her to improve as far as strength, mobility, ADLs with gait with the walker, improved cognition, and hopefully, we can wean her off the TPN. Potential barriers would include her multiple medical comorbidities and decreased functional status. [address] [address] HISTORY AND PHYSICAL Name: BIPIN RUBI Room #: 505-P [facility] IN M.R.#: [id number] Admission: 09/21/20 Attend Phys: Geremias Valadez MD Discharge: Date of : 58 Report #: [id number] The patient meets diagnostic criteria for an acute in-hospital inpatient rehabilitation stay. <ELECTRONICALLY SIGNED> By: Geremias Valadez MD 10/11/20 1526 [id number] [id number] Geremias Valadez MD /[facility]
--- NOTE | 2020-10-11 15:29 | PLAN ---
[facility] [place] [address] REHAB UNIT PLAN OF CARE Name: BIPIN RUBI Room #: 505-P ADM IN M.R.#: [id number] Admission: 09/21/20 Attend Phys: Geremias Valadez MD Discharge: Date of : 58 Report #: [id number] THIS REPORT FOR: cc: FAM - No family physician/PCP FAM - No family physician/PCP Geremias Valadez MD ~ DATE OF SERVICE: 09/23/2020 PROGRESS NOTE/OVERALL PLAN OF CARE SUBJECTIVE: The patient is seen back in followup. Temperature 36.8, pulse 89, respirations 18, blood pressure 103/67. She continues on TPN. She will eat some of her breakfast, but not much in the way of lunch or dinner. Psychiatry is involved. We have been encouraging her as far as increasing her p.o. intake. Neurology thinks that she has a possible neuropathy. Functionally, she is mod assist with sit to stand transfers. Gait is max assist 12 feet with a front-wheeled walker. In occupational therapy, lower body dressing has been mod assist. Speech therapy is following her with mechanical soft, thin liquid diet. They are evaluating her for language and cognition as well. ASSESSMENT: 1. Toxic metabolic encephalopathy. 2. Urinary tract infection. 3. Severe protein-calorie malnutrition, on TPN. 4. Diabetes mellitus type 2 with peripheral neuropathy. 5. Hypertension. 6. Hyperlipidemia. 7. Schizophrenia with bipolar disorder. PLAN: The overall plan of care is based on the preadmission screen and information garnered from therapy assessments. 1. Estimated length of stay is probably going to be at least 10 days to 2 weeks. 2. Medical prognosis is reasonably good. 3. Anticipated interventions includes the interdisciplinary acute inpatient rehabilitation program. 4. Anticipated functional outcomes would be for the patient to improve as far as mobility, strength, endurance and cognition, so that she can return back to the home setting. Also to improve as far as p.o. intake. 5. Discharge destination would be back to the home setting where she lives with her daughter. 6. Expected therapy by discipline includes PT, OT and speech 1 hour per day each five days a week throughout the duration of the [place] [address] REHAB UNIT PLAN OF CARE Name: BIPIN RUBI Room #: 505-P [facility] IN .R.#: [id number] Admission: 09/21/20 Attend Phys: Geremias Valadez MD Discharge: Date of : 58 Report #: [id number] The patient's prognosis for significant practical improvement within a reasonable period of time appears good. Given the patient's complex medical condition and risk of further medical complications, rehabilitation services could not be safely provided at the lesser level of care such as a retirement facility. <ELECTRONICALLY SIGNED> By: Geremias Valadez MD 10/11/20 1529 1046 [facility] [place][note 2] Geremias Valadez MD /tari
--- NOTE | 2020-10-11 17:55 | NUR ---
Consult rec'd to locate new pcp through [facility] system that accepts [place] medicaid as pt/family may want to switch. [place] environmental emergencies planner contacted [facility], Dr Johns/Danii office and Dr. Valverde office. None of them are accepting [place]icaid pt's at this time. Pt may need to contact [place] medicaid customer service to help locate a new [place] [facility] [place] or continue going to her current pcp.
[2020-10-11 19:18] VITALS: BP 120/91
--- NOTE | 2020-10-11 20:05 | NUR ---
PATIENT DID NOT CALL FOR EVENING CARAFATE DUE AT 1600.
--- NOTE | 2020-10-12 02:41 | NUR ---
ASKED FOR MEDS TO BE GIVEN AT 2100, APPROX AN HOUR AFTER EATING SANDWICH AND BAKED CHIPS.INDEPENDENTLY TO BSC FOR THICK YELLOW STOOL. RELATES THAT SHE IS NOW ABLE TO TOLERATE MEDS WITH WATER, LOOKING FORWARD TO GETTING OUT OF THE HOSPITAL IN THE NEAR FUTURE. UP WITH SBA TO BSC FOR THICK YELLOW STOOL
[2020-10-12 08:00] VITALS: BP 111/83
--- NOTE | 2020-10-12 09:51 | NUR ---
ASSUMED CARE AT 0700. PATIENT IS ALERT AND ORIENTED X4. PATIENT SEGURA'S, MINCEMEAT MAKER ARE EQUAL. LUNGS ARE CLEAR. ABD IS SOFT WITH BSX4. UP TO THE BSC WITH ASSIST TO VOID AND HAVE BM. UP IN CHAIR FOR MEALS. FALL AND SAFETY PROTOCOLS IN PLACE. DENIES PAIN AT THIS TIME. CONTINUES TO PROGRESS SLOWLY TOWARDS D/C GOALS. WILL CONTINUE TO MONITER.
[2020-10-12] MEDS ORDERED: REMERON 30 MG T30 M1 PO (12:14)
[2020-10-12] MEDS ORDERED: ACIDOPHILUS1 EAC4 PO (12:14)
[2020-10-12] MEDS ORDERED: CARAFATE1 GM PO (12:16)
--- NOTE | 2020-10-12 15:30 | NUR ---
cm provided pt will explaination of medicare for persons under 65 receiving disability and provided her w/information. and provided pt with medicaid number to apply for in-home service and with a resource list of in home care companys. pt cannot switch providers right now d/t [facility] currently at capacity w/medicaid pts.
[2020-10-12 19:55] VITALS: BP 106/74
--- NOTE | 2020-10-13 02:13 | NUR ---
ASSESSED AT START OF SHIFT. PT A&OX4. UP WITH SBA TO THE BATHROOM. NIGHT TIME SNACK PROVIDED. PT CALLS OUT FOR NIGHT MED THIS SHIFT. FALL OREC IN PLACE. ANTICIPATING D/C TOMORROW. WILL CONT WITH POC TILL EOS.
[2020-10-13 07:20] VITALS: BP 119/85
[2020-10-13 09:47] VITALS: BP 119/85
[2020-10-13 10:06] VITALS: BP 119/85
[2020-10-13 10:24] VITALS: BP 119/85
--- NOTE | 2020-10-13 11:00 | NUR ---
DISCHARGE INSTRUCTIONS GIVEN TO PATIENT AND DAUGHTER. PATIENT AND DAUGHTER VERBALIZED UNDERSTANDING OF D/C INSTRUCTIONS. PATIENT LEFT UNIT IN GOOD CONDTION PER W/C TO ED WAITING AREA.
--- NOTE | 2020-10-13 11:01 | NUR ---
PATIENT WAS SBA FOR TRANSFER FROM W/C TO PATIENTS DAUGHTER CAR
--- NOTE | 2020-10-13 16:14 | NUR ---
PT DISCHARGING TODAY TO HOME WITH LAURA METZGER FAXED DC ORDERS/SUMMARY SPOKE WITH CATERINA IN INTAKE SHE RECEIVED ORDERS AND WILL ARRANGE VISITS WITH PT.
== END 2020-10-13 11:02 | disposition home health service (06) | DRG 91 ==
PROVIDERS: Hospitalist; Internal Medicine; Nurse Practitioner Family; Surgery; ADMIT Physical Medicine & Rehabilitation; ATTEND Physical Medicine & Rehabilitation
DX: G92 Toxic encephalopathy (principal); E43 Unspecified severe protein-calorie malnutrition; N39.0 Urinary tract infection, site not specified; K52.1 Toxic gastroenteritis and colitis; Z68.1 Body mass index [BMI] 19.9 or less, adult; E11.42 Type 2 diabetes mellitus with diabetic polyneuropathy; I10 Essential (primary) hypertension; E78.5 Hyperlipidemia, unspecified; F20.9 Schizophrenia, unspecified; F31.9 Bipolar disorder, unspecified; E87.8 Other disorders of electrolyte and fluid balance, not elsewhere classified; E87.6 Hypokalemia; I95.1 Orthostatic hypotension; D64.9 Anemia, unspecified; Z20.822 Contact with and (suspected) exposure to COVID-19; R41.0 Disorientation, unspecified; R41.9 Unspecified symptoms and signs involving cognitive functions and awareness; E66.9 Obesity, unspecified; R53.81 Other malaise; R19.7 Diarrhea, unspecified; E83.42 Hypomagnesemia; K28.9 Gastrojejunal ulcer, unspecified as acute or chronic, without hemorrhage or perforation; Z68.20 Body mass index [BMI] 20.0-20.9, adult; Z98.84 Bariatric surgery status; Z88.8 Allergy status to other drugs, medicaments and biological substances; Z90.710 Acquired absence of both cervix and uterus; Z90.49 Acquired absence of other specified parts of digestive tract; Z86.010 Personal history of colon polyps; Z79.899 Other long term (current) drug therapy
CPT/HCPCS: 10112

== ENCOUNTER 2020-12-11 15:01 | Inpatient (IN) | payer OTHER ==
[~2020-12-11] VITALS: Ht 162.6 cm; Wt 66.6 kg
--- NOTE | ~2020-12-11 | HC ---
[facility] [place] [address] CONSULTATION Name: BIPIN RUBI Room #: 447-P [facility] IN .R.#: [id number] Admission: 12/11/20 Attend Phys: Emma Lira MD Discharge: Date of : 58 Report #: [id number] THIS REPORT FOR: cc: ALIX - Mnoica family physician/PCP ALIX - No family physician/PCP Geremias Valadez MD ~ DATE OF SERVICE: 12/13/2020 HISTORY OF PRESENT ILLNESS: The patient is a 60-year-old -[place] female previously known to me, who was on the acute inpatient rehab haas from 09/21/2020-10/13/2020 with acute metabolic encephalopathy at that time, weight loss, anorexia, was on TPN at that time. She had recent gastric surgery back in 2018. She did well on the rehab haas was able to be up ambulating 220 feet with a front-wheeled walker, was going up and down 12 stairs. She was able to be discharged back home with her daughter. She has been doing well at home and has been doing some shopping a couple of times, but over the last 2-3 weeks, she has gotten progressively weaker. She was readmitted now and diagnosed with community-acquired pneumonia. She has noted right lower lobe infiltrate. She is significantly weaker from prior and we are seeing her in rehabilitation medicine consultation. PAST MEDICAL HISTORY: Includes diabetes mellitus type 2, schizophrenia, bipolar disorder, prior gastric surgery as noted above. She has a history of diabetes mellitus with peripheral neuropathy. She has had the prior gastric surgery. MEDICATIONS: Please see the full medication listing as noted. ALLERGIES: TRAZODONE APPARENTLY CAUSES HIVES. SOCIAL HISTORY: She lives with her daughter in a duplex 5-6 steps in. Premorbid walker ambulator functional distances. She was noted to have an aide 2 times a week to assist her. The daughter works during the day, but there is a 15-year-old grandson who home schools and is there with her and can assist during the day. REVIEW OF SYSTEMS: Did not offer any current complaints of chest pain. No current shortness of breath, no abdominal discomfort. Complains of overall generalized weakness. PHYSICAL EXAMINATION: GENERAL: A 60-year-old -[place] female in no obvious distress. VITAL SIGNS: Last recorded temperature 98, pulse 91, respirations 16, and blood pressure 143/99. The patient is alert, pleasant. She will follow basic 1 step commands. HEENT: Facies are symmetric. [facility] [address] [place] [address] CONSULTATION Name: BIPIN RUBI Room #: 447-P [facility] IN .R.#: [id number] Admission: 12/11/20 Attend Phys: Emma Lira MD Discharge: Date of : 58 Report #: [id number] EXTREMITIES: She has functional range of motion of the upper extremity, strength is grade 4-/5. DTRs are trace to 1. Lower extremities, there is no calf swelling. Functional range of motion, strength is grade 3+ to 4-/5. DTRs are trace to 1. She has been standby assistance for supine to sit. She has been too weak and is not attempted gait to this point. Therapy will be working with her later today. ASSESSMENT: A 60-year-old -[place] female previously known to me with the following problem list: 1. Medical complexity with generalized debilitation. 2. Community-acquired pneumonia with right lower lobe infiltrate. 3. Diabetes mellitus type 2 with peripheral neuropathy. 4. Schizophrenia with bipolar disorder. 5. Prior history of gastric surgery 2019. PLAN: Therapy to further assess. She certainly may be a candidate for another short acute inpatient rehabilitation stay depending upon how she does during her therapy evaluations. We will be glad to follow along with you regarding her rehab therapy needs. By: [id number] Geremias Valadez MD /nt
[~2020-12-11 15:01] MED LIST changes: +CARAFATE1 GM PO; +REMERON 30 MG T30 M1 PO
[2020-12-11 15:03] VITALS: BP 96/73
[2020-12-11 16:53] LABS: URINE BILIRUBIN 2+ (Negative); URINE BLOOD TRACE (Negative); URINE CLARITY SL CLOUDY; URINE COLOR YELLOW; URINE GLUCOSE-RANDOM* NEGATIVE (Negative); URINE KETONES 1+ (Negative); URINE LEUKOCYTES-REFLEX NEGATIVE (Negative); URINE NITRITE-REFLEX NEGATIVE (Negative); URINE PROTEIN (DIPSTICK) 1+ (Negative); URINE SPECIFIC GRAVITY >= 1.030 (1.005-1.035)
[2020-12-11 17:02] LABS: HYALINE CASTS 4-10 Moderate /LPF (None Seen); MUCUS >6 Heavy strn/LPF (None Seen)
[2020-12-11 17:03] LABS: SQUAMOUS 4-10 Moderate /LPF (0-3); YEAST-REFLEX Present (None Seen)
[2020-12-11 17:04] LABS: BACTERIA-REFLEX 1-9 Few /HPF (None Seen); CRYSTALS None Seen /LPF (None Seen); URINE RBC 0-2 Rare /HPF (0-2); URINE WBC-REFLEX 0-5 Rare /HPF (0-5)
[2020-12-11 18:36] LABS: ABSOLUTE NEUTROPHILS 2.5 thou/uL (1.4-8.2); BASOPHILS 0.4 % (0.0-2.0); EOSINOPHILS 0.2 % (0.0-3.0); HEMATOCRIT 35.4 % (37.0-47.0); HEMOGLOBIN 11.6 gm/dL (12.0-15.0); LYMPHOCYTES 27.1 % (24.0-44.0); MCH 28.9 pg (26.0-34.0); MCHC 32.7 g/dL (28.0-37.0); MCV 88.2 fL (80.0-100.0); MONOCYTES 5.9 % (1.0-8.0); PLATELET COUNT 165 thou/uL (150-400); POLYS 66.4 % (36.0-66.0); RBC 4.02 mil/uL (4.20-5.00); RDW 17.6 % (10.5-14.5); WBC 3.8 thou/uL (4.0-11.0)
[2020-12-11 19:18] LABS: CALCIUM 7.3 mg/dL (8.5-10.1); CREATININE 0.8 mg/dL (0.6-1.0); TOTAL BILIRUBIN 0.8 mg/dL (0.2-1.0)
[2020-12-11 19:19] LABS: ALBUMIN 1.4 g/dL (3.4-5.0); TOTAL PROTEIN 4.8 g/dL (6.4-8.2)
[2020-12-11 19:20] LABS: POTASSIUM 2.6 mmol/L (3.5-5.1)
[2020-12-12] VITALS (12 sets, daily range): BP systolic 125–141; BP diastolic 90–103
--- NOTE | 2020-12-12 07:18 | EKG ---
[place] [address] [facility] [place] [address] ELECTROCARDIOGRAM REPORT Name: BIPIN RUBI Room #: 243-P ADM IN M.R.#: [id number] Admission: 12/11/20 Attend Phys: Emma Lira MD Discharge: Date of : 58 Report #: [id number] [facility] ED Test Date: 2020-12-11 Test Time: 15:09:35 Pat Name: BIPIN RUBI Department: Room: 243 Gender: F Api Product Manager: ROBERT : 1960 Requested By: Quang Schulte Order Number: [id number] MD: Quang Maria Measurements Intervals [place] Rate: 104 P: 47 [place]: 141 QRS: -63 QRSD: 71 T: -27 QT: 393 QTc: 517 Interpretive Statements Sinus tachycardia Left axis deviation Low voltage, precordial leads Abnormal R-wave progression, late transition Borderline T abnormalities, diffuse leads Prolonged QT interval Compared to ECG 10/08/2020 16:45:33 Atrial premature complex(es) now present T-wave abnormality now present Prolonged QT interval now present Sinus rhythm no longer present Poor R-wave progression no longer present Electronically Signed On 12-12-2020 7:18:31 CDT by Quang Maria [email or web address] <ELECTRONICALLY SIGNED> By: Quang Maria MD, FAC 12/12/20 0718 1509 [id number] Quang Maria MD, [facility] /EPI
--- NOTE | 2020-12-12 07:36 | NUR ---
PATIENT ARRIVED AT THE UNIT APPROX 0530. PATIENT IS A/OX4. DENIES ANY SOA, NV. AFEBRILE. VSS. INCONTINENT. LOW BS. TREATED PER PROTOCOL. DENIES NEEDS. REPORT GIVEN TO INCOMING RN.
--- NOTE | 2020-12-12 13:17 | NUR ---
VAT CONSULTED FOR ML PLACEMENT. VESSELS ON LEFT AR SMALL AND NONCOMPRESSABLE, R UPPER ARM ATTEMPTED BRACHIAL SEVERAL TIMES UNABLE PASS GUIDEWIRE MORE THAN FEW CM'S. PIV STARTED. DISCUSSED WITH PATIENT THAT A PORTACATH MAY NEED TO BE CONSIDERED. PT HAD PREVIOUS LINE DONE BY IR DUE TO STENOSIS
--- NOTE | 2020-12-12 14:56 | NUR ---
@ APPROX 1400, PT TRANSFERRED TO ROOM 447 VIA IN STABLE CONDITION AFTER CALLING REPORT TO ACCEPTING RN. PT ASSISTED TO BED. IV FLUIDS RESUMED AT 100CC/HR VIA PUMP. NO C/O VOICED. NO ACUTE DISTRESS NOTED.
--- NOTE | 2020-12-12 16:13 | NUR ---
cm transferred from icu to . cm consulted prior to transferred out of icu. unable to visit with mi rt she resting . note she was in sep 2020. lives home with daughter carlos and nephew in home as well. 5 steps, has wheel chair, 4ww, [facility] past. has community based service with [facility] through pt medicaid. manage medication with pill box. cm spoke with clarita greenwood via phone call ". would like her to have some rehab to get stronger before coming home but she would tell you she doesnt need it. she did good on [facility], so hopefully that might work out"/clarita greenwood. will cont following as needed for dc needs.
--- NOTE | 2020-12-12 17:46 | NUR ---
Received pt from the ICU, prefers to be in the bed and wanted to rest stating she has not had enough sleep. POC followed with no signs or verbalizations of distress noted, hydration and food intake encouraged.
[2020-12-13 04:56] VITALS: BP 139/95
--- NOTE | 2020-12-13 05:00 | NUR ---
RECIEVED CARE OF THIS PATIENT AT 1900. PATIENT ALERT AND ORIENTED X4. ATE NONE OF HER DINNER, EVEN WITH MUCH ENCOURAGEMENT. HAS FLUIDS INFUSING RAC. ACCUCHECK WAS 121. DENIES PAIN. SLEPT MOSTY OF NIGHT.
[2020-12-13 07:55] VITALS: BP 143/99
--- NOTE | 2020-12-13 12:53 | NUR ---
MANASA SEVERAL UNSUCCESSFUL PIV ATTEMPTS AND LAB HERE ALSO UNABLE TO DRAW LABS. DR TRAN HERE AND NOTIFIED, IR CONSULTED FOR PORT PLACEMENT. DISCUSSED WITH PATIENT AND SHE IS IN AGREEMENT
--- NOTE | 2020-12-13 15:01 | NUR ---
ON-GOING ASSESSMENT: CM REVIEWED CHART. GI WAS CONSULTED DUE TO NAUSEA AND VOMITTING. PT CONTINUES TO WORK WITH THERAPY. [facility] IS FOLLOWING PATIENT AND CM AWAITING AN ANSWER FROM [facility] IF THEY CAN ACCEPT PATIENT. PT HAS MEDICAID SO SNF IS NOT AN OPTION. AWAITING INPUT FROM [facility]. CM WILL CONTINUE TO FOLLOW AND ASSIST NEEDED. [facility] LIASON STATING THEY ARE REVIEWING AND WILL LET CM KNOW.
[2020-12-13 15:16] LABS: MAGNESIUM 1.4 mg/dL (1.8-2.4); POTASSIUM 3.4 mmol/L (3.5-5.1)
[2020-12-13 15:21] LABS: APTT 32.5 Seconds (24.5-32.8); INR 1.5; PROTIME 16.3 Seconds (9.3-11.4)
[2020-12-13 16:15] VITALS: BP 145/105
--- NOTE | 2020-12-13 20:31 | NUR ---
Patient's two IV infiltrated, reported it to the doctor, Ultra sound tried but failed to put a new IV into the patient. Patient is scheduled to have a port catheter put in tomorrow morning. hardly ate anything for three meals, voiced that she felt nausea, vomitted with some sputum like emesis.
[2020-12-13 20:35] VITALS: BP 148/100
[2020-12-13 21:57] VITALS: BP 148/100
--- NOTE | 2020-12-14 03:05 | NUR ---
PT AOX4. PT REPORTS 4/10 PAIN IN BLE RELATED TO NEUROPATHY. PT HAS PRN PO APAP Q4HR AVAILABLE. PT CONTINUES WITHOUT IV DUE TO INSERTION DIFFICULTY, ANTICIPATING PORTACATH PLACEMENT. PT DENIES SOB AT REST WHILE ON ROOM AIR. PT TOLERATING PO INTAKE OF FLUIDS AND REGULAR DIET, NPO AT MIDNIGHT. PT WITHOUT NAUSEA OR EMESIS. PT VOIDING PER BEDPAN. PT WITH WEAKNESS, RESTING IN BED THROUGHOUT SHIFT. FREQUENT REPOSITIONING ENCOURAGED WHILE IN BED, PT NOTED TO INDEPENDENTLY SHIFT SLIGHTY, REPOSITIONING ASSISTANCE PROVIDED. PT ENCOURAGED TO NOTIFY STAFF FOR ALL NEEDS, CALL LIGHT WITHIN REACH, BED ALARM ON, BED LOCKED IN LOWEST POSITION, FREQUENT MONITORING WILL CONTINUE.
[2020-12-14 04:20] VITALS: BP 158/112
[2020-12-14 07:43] VITALS: BP 161/114
[2020-12-14 08:15] VITALS: BP 160/95
[2020-12-14 10:11] VITALS: BP 143/103
--- NOTE | 2020-12-14 14:28 | P ---
[facility] [place] [place] [address] PROCEDURE REPORT Name: BIPIN RUBI Room #: 447-P [facility] IN M.R.#: [id number] Admission: 12/11/20 Attend Phys: Emma Lira MD Discharge: Date of : 58 Report #: [id number] THIS REPORT FOR: cc: FAM - No family physician/PCP FAM - No family physician/PCP Primitivo Obando MD ~ DATE OF SERVICE: 12/14/2020 PROCEDURE PERFORMED: Upper endoscopy with biopsies and tattoo. HISTORY OF PRESENT ILLNESS: The patient is a 60-year-old female who was admitted with generalized weakness, decreased appetite over the last few weeks, intermittent nausea and vomiting. Denies any abdominal pain, previous history of gastric bypass surgery in 07/2019. She underwent an upper endoscopy by my partner, Dr. Delatorre in 08/2020, which showed 2 large anastomotic ulcers and a jejunal polyp, biopsy of a polyp showing tubular adenoma. H. pylori was negative. The patient was placed on daily PPI therapy. She took this for approximately a month, but then quit taking it. PPI therapy has now been restarted. Today, she states feeling better. Plan is for upper endoscopy. DESCRIPTION OF PROCEDURE: The risks and benefits of the procedure were explained to the patient, those risks including but not limited to bleeding, perforation and the risk of sedation. She understood these risks and gave informed consent. Sedation was given using propofol per anesthesia. Next, using a standard Olympus upper endoscope, the scope was placed in the patient's mouth and advanced under direct vision through the esophagus, through the gastric bypass and well into the jejunum. The larynx was normal in appearance. The esophagus was normal throughout. The GE junction was normal. There was a small gastric remnant pouch noted. No evidence of ulceration or inflammation at the anastomosis. Small amount of food was noted in this area. There were partial limb, which was normal. I was able to advance the scope well into the jejunum at which point a pedunculated type polyp was noted. I suspect this is the area that was biopsied in the past. I repeated biopsies. There was a fairly large to consider a snare removal in the jejunum. Therefore, I just obtained biopsies and I also tattooed the base today. No other abnormalities were noted in the jejunum. At this point, the scope was then withdrawn and the procedure terminated. The patient tolerated the procedure well. IMPRESSION: 1. Surgical changes consistent with gastric bypass with small gastric pouch remnant. No evidence of ulcerations at anastomosis. 2. Pedunculated type polyp in the jejunum. Biopsies obtained. Base of area was tattooed. 3. Otherwise, normal upper endoscopy. [address] [address] PROCEDURE REPORT Name: ELICIABIPIN Room #: 447-P [facility] IN M.R.#: [id number] Admission: 12/11/20 Attend Phys: Emma Lira MD Discharge: Date of : 58 Report #: [id number] RECOMMENDATIONS: 1. Continue daily PPI therapy. 2. Await biopsy results. 3. If biopsies show adenomatous polyp tissue may need to consider evaluation by Dr. May for possible removal in the future as an outpatient. Thank you for allowing me to participate in her care. <ELECTRONICALLY SIGNED> By: Primitivo Obando MD 12/14/20 1428 1317 1400 Primitivo Obando MD /nt
--- NOTE | 2020-12-14 14:42 | NUR ---
Patient accepted to [facility] they have auth. Patient was not stable for transfer. Lost authorization. Insurance will only auth the day patient is stable for discharge. With insurance [facility] can get auth on Friday or following Friday.
[2020-12-14 15:42] VITALS: BP 144/108
[2020-12-14 19:06] VITALS: BP 173/120
--- NOTE | 2020-12-14 20:06 | NUR ---
A/O, calm and cooperative, BP elevated, Dr. Lira is aware. PICC dressing was bleeding, the staff changed the dressing, was not bleeding during the shift change, the night nurse was aware of it. no vomitting today, PO medication tolerated with Zofran.
--- NOTE | 2020-12-15 04:48 | NUR ---
ASSUMED PT CARE AT 1900.PT DENIED PAIN SO FAR.NO COMPLIANT OF N/V NOTED.PT REF THE TOPICAL CREAM FOR HER NAUSEA,PT STATED THAT IT FLORES WHENEVER IT IS APPLIED.EDEMA NOTED ON HER R ARM.PT ABLE TO MAKE HER NEEDS KNOWN.CALL LIGHT WITHIN REACH.
[2020-12-15 07:58] VITALS: BP 158/111
[2020-12-15] MEDS ORDERED: LISINOPRIL20 MG PO (12:39)
[2020-12-15] MEDS ORDERED: EFFER-K 20 MEQ20 ME1 PO (12:39)
[2020-12-15] MEDS ORDERED: CEFUROXIME500 MG PO ×2 (12:39→12:41)
[2020-12-15] MEDS ORDERED: CLONIDINE HCL0.3 M3 PO (12:39)
--- NOTE | 2020-12-15 13:06 | NUR ---
RODRIGO CHAPARRO, LIASION, INFORMED CM SHE RECEIVED AUTH AND THE PT WILL TRANSFER THIS AFTERNOON PENDING COVID RESULTS. RN, MAYDA, CONFIRMED TEST HAVE BEEN DONE, PENDING RESULTS. CM NOTIFIED DR. TRAN. PT AND PT'S DTR, MORIAH. ALL AGREEABLE TO PLAN.
[2020-12-15 16:15] VITALS: BP 154/107
[2020-12-15 16:25] VITALS: BP 152/107
== END 2020-12-15 16:41 | DRG 193 ==
LOC: ER 15:01 → EROBS 18:25 → ICU 12-12 04:59 → 4S 12-12 13:56
PROVIDERS: Emergency Medicine; Radiology Vascular & Interventional Radiology; ADMIT Hospitalist; ATTEND Hospitalist
PROC: 02HV33Z Insertion of Infusion Device into Superior Vena Cava, Percutaneous Approach (ICD-10-PCS; principal; 2020-12-14)
PROC: 0DBA8ZX Excision of Jejunum, Via Natural or Artificial Opening Endoscopic, Diagnostic (ICD-10-PCS; principal; 2020-12-14)
DX: J18.9 Pneumonia, unspecified organism (principal); E43 Unspecified severe protein-calorie malnutrition; N39.0 Urinary tract infection, site not specified; F31.9 Bipolar disorder, unspecified; E11.649 Type 2 diabetes mellitus with hypoglycemia without coma; I10 Essential (primary) hypertension; E78.5 Hyperlipidemia, unspecified; K21.9 Gastro-esophageal reflux disease without esophagitis; K63.5 Polyp of colon; E83.51 Hypocalcemia; E87.6 Hypokalemia; E66.9 Obesity, unspecified; F20.9 Schizophrenia, unspecified; B96.89 Other specified bacterial agents as the cause of diseases classified elsewhere; Z86.010 Personal history of colon polyps; Z88.8 Allergy status to other drugs, medicaments and biological substances; Z87.891 Personal history of nicotine dependence; Z68.25 Body mass index [BMI] 25.0-25.9, adult; Z90.49 Acquired absence of other specified parts of digestive tract
CPT/HCPCS: 10195; 62110; 62900; 70005

== ENCOUNTER 2020-12-15 11:43 | Inpatient (IN) | payer OTHER ==
[~2020-12-15] VITALS: Ht 162.6 cm; Wt 46.7 kg
--- NOTE | ~2020-12-15 | HC ---
[facility] [place] [address] CONSULTATION Name: BIPIN RUBI Room #: 509-P ADM IN M.R.#: [id number] Admission: 12/15/20 Attend Phys: Geremias Valadez MD Discharge: Date of : 58 Report #: [id number] THIS REPORT FOR: cc: ALIX - Monica family physician/PCP ALIX - [place] family physician/PCP Blas Adhikari PhD ~ DATE OF SERVICE: 12/17/2020 NEUROBEHAVIORAL STATUS EXAM ATTENDING PHYSICIAN: Geremias Valadez MD FRUIT COORDINATOR: Blas Adhikari, PhD AGE: 60. CLINICAL PRESENTATION: The patient is a 60-year-old female admitted to the rehabilitation unit for a comprehensive inpatient rehabilitation program to improve functional mobility, activities of daily living and self-care and mental status secondary to deficits from altered mental status. Her medical problem list included altered mental status, anemia, community-acquired pneumonia, generalized weakness following poliomyelitis, hypokalemia, hypotensive episodes, pneumonia, and protein-calorie malnutrition. ADMITTING DIAGNOSES: On the rehabilitation unit was a medical complexity with generalized debility, community-acquired pneumonia, severe hypokalemia, hypoglycemia, type 2 diabetes mellitus with peripheral neuropathy, schizophrenia/bipolar disorder and history of gastric surgery in 2019. A complete description of her medical condition and history can be found in her medical record. Neuropsychological consultation was requested to provide assistance in the assessment of cognitive and emotional status and provide recommendations and services. The patient was seen on the rehabilitation unit on 09/30/2020 where she was admitted with a metabolic encephalopathy. She was diagnosed with severe protein malnutrition. She had undergone gastric bypass surgery in 2019. She has 2 biological children and 6 stepchildren. She reports that her last grade completed was 11th. 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 She indicated having been independent with basic and instrumental activities of daily living until 2019. The patient discontinued driving in 2005. TECHNIQUES UTILIZED: Clinical interview, review of medical records, staff [facility] [address] [place] [address] CONSULTATION Name: BIPIN RUBI Room #: 509-P [facility] IN ..#: [id number] Admission: 12/15/20 Attend Phys: Geremias Valadez MD Discharge: Date of : 58 Report #: [id number] consultation and behavioral observation, mini mental status exam 2 standard version and clock drawing. EXAMINATION FINDINGS: The patient was alert and cooperative with the assessment. She accurately described the reason for her hospitalization as pneumonia. She has been frustrated with her medical condition and lingering nature of her symptoms. She has neuropathy, which is quite painful in her legs. Increased anxiety is noted as she is worried about her medical wellbeing and recovery. She reports a history of panic attacks and anxiety. However, she denied a history of hallucinations or treatment for bipolar disorder. Symptoms are reported to include memory, decreased appetite and fatigue. She does not report difficulty with word finding, sleep or auditory/visual hallucinations. There is no suicidal ideation. She does not present with an aphasia. The performance on the MMSE 2 brief version suggests impairment in orientation to time and immediate recall. She was 3/3 for initial registration, 3/5 for orientation to time, 5/[address] and 1/3 for immediate recall of 3 items after a brief time delay and distraction. Performance on the MMSE 2 standard version was extremely low with a raw score of 21 of 30. She was 2/5 for serial sevens, 2/2 for naming, 1/1 for repetition, 3/3 for auditory comprehension. She could read and follow a single command. The patient had difficulty with writing a sentence and was unable to copy a simple geometric design. The patient could not draw a clock and adequately set the hands of the clock. Impaired visual spatial construction and perceptual ability is suggested. The patient is presenting with ceptjbzi-co-mnqnkj deficits in cognition. Impairment in immediate recall, sustained concentration and attention and visual spatial construction are suggested. DIAGNOSTIC IMPRESSION: 1. Major neurocognitive disorder (dementia), unspecified, without behavior disorder - likely in the mild range, although moderate cognitive deficits are likely. 2. Unspecified anxiety disorder. 3. Schizophrenia - previous diagnoses as noted in the medical record. RECOMMENDATIONS: The patient is likely to require increased assistance in the management of medication, finances and nutrition. She reports having been independent until most recently with medication, nutrition and finances. However, increasing assistance is likely to be [place] [address] CONSULTATION Name: BIPIN RUBI Room #: 509-P [facility] IN M.R.#: [id number] Admission: 12/15/20 Attend Phys: Geremias Valadez MD Discharge: Date of : 58 Report #: [id number] safety. A followup neuropsychological evaluation can be of benefit to help clarify neurocognitive functioning. ____ assistance and structure during her rehab program along with the use of compensatory techniques to manage deficits and cognition will be of benefit. Thank you very much for allowing me to provide the consultation on this patient. By: [id number] Blas Adhikari, PhD /tari
[2020-12-15] MEDS ORDERED: CEFUROXIME500 MG PO ×2 (12:39→12:41)
[2020-12-15] MEDS ORDERED: LISINOPRIL20 MG PO (12:39)
[2020-12-15] MEDS ORDERED: CLONIDINE HCL0.3 M3 PO (12:39)
[2020-12-15] MEDS ORDERED: EFFER-K 20 MEQ20 ME1 PO (12:39)
--- NOTE | 2020-12-15 17:00 | NUR ---
Assumed pt care at 7am.Pt in and out of bed with assist.Assessment completed. vss.Pt potassium level was 3.0, Dr Lira notified ,order noted.Both po and iv potassium givem but pt refused po.Received call from [facility]. Report given to Kierra glover. At 1700,pt transfered to rehab unit per bed.
[2020-12-15 18:06] VITALS: BP 140/101
--- NOTE | 2020-12-15 19:10 | NUR ---
SI[age]TY [age] YEAR OLD FEMALE ADMITTED TO [facility] ROOM 509. PT ALERT AND ORIENTED TIMES FOUR. VSS. PT DENIES PAIN/SOA AT THIS TIME. PT REFUSED DINNER. WILL CONTINUE TO MONITOR.
[2020-12-15 20:00] VITALS: BP 147/112
--- NOTE | 2020-12-16 05:02 | NUR ---
RECIEVED CARE OF THIS PATIENT AT 1900. PATIENT ALERT AND ORIENTED X4. PATIENT INCONTENT SEVERAL TIMES THIS SHIFT. JANICE DOUBLE LUMAN PICC, FLUSHES AND DRAWS GOOD. DENIES PAIN. SLEPT OFF AND ON DURING NIGHT.
[2020-12-16 07:42] LABS: HEMATOCRIT 37.8 % (37.0-47.0); HEMOGLOBIN 12.3 gm/dL (12.0-15.0); MCH 28.7 pg (26.0-34.0); MCHC 32.6 g/dL (28.0-37.0); MCV 88.2 fL (80.0-100.0); RBC 4.28 mil/uL (4.20-5.00); WBC 3.3 thou/uL (4.0-11.0)
[2020-12-16 07:50] LABS: CALCIUM 7.8 mg/dL (8.5-10.1); CREATININE 0.7 mg/dL (0.6-1.0); POTASSIUM 3.3 mmol/L (3.5-5.1)
[2020-12-16 08:00] VITALS: BP 114/90
[2020-12-16 09:58] LABS: ALBUMIN 1.3 g/dL (3.4-5.0); CALCIUM 7.7 mg/dL (8.5-10.1); CREATININE 0.7 mg/dL (0.6-1.0); MAGNESIUM 1.3 mg/dL (1.8-2.4); PHOSPHORUS 1.7 mg/dL (2.6-4.7); POTASSIUM 3.4 mmol/L (3.5-5.1); TOTAL BILIRUBIN 0.7 mg/dL (0.2-1.0); TOTAL PROTEIN 4.9 g/dL (6.4-8.2)
[2020-12-16 17:08] VITALS: BP 156/116
--- NOTE | 2020-12-16 18:44 | NUR ---
PT IS WEAK, NOT EATING AND NOTED TO HAVE HYPOGLYCEMIA. SHE WAS STARTED ON PPN AND TOLERATING WELL. ELECTROLYTES ARE NOW BEING CORRECTED. PATIENT NOW SLEEPING. WILL NOT GET UP TO USE BEDSIDE COMMODE. NOTED TO BE INCONTINENT. WILL CONT WITH PLAN OF CARE.
[2020-12-16 19:55] VITALS: BP 133/94
--- NOTE | 2020-12-16 23:51 | NUR ---
PT ASSESSMENT COMPLETED AND VSS. MEDS GIVEN ORDERED AND WELL TOLERATED. FALL PRECAUTIONS IN PLACE. PT WITH URGENCY. BEDPAN USED BECAUSE PT WAS NOT ABLE TO WAIT WHEN NEEDING TO VOID OR HAVE A LOOSE BM. PPN RUNNING. POTASSIUM IV GIVEN ORDERED. ASST WITH REPOSITION USING PILLOWS FOR COMFORT. SAT WNL. SLEEPING WELL AT THIS TIME. WILL CONTINUE TO MONITOR FREQUENTLY. BG WNL AT THIS TIME.
[2020-12-17 05:00] LABS: ALBUMIN 1.3 g/dL (3.4-5.0); CALCIUM 7.6 mg/dL (8.5-10.1); CREATININE 0.7 mg/dL (0.6-1.0); MAGNESIUM 1.6 mg/dL (1.8-2.4); PHOSPHORUS 2.9 mg/dL (2.5-4.9); POTASSIUM 3.1 mmol/L (3.5-5.1); TOTAL BILIRUBIN 0.6 mg/dL (0.2-1.0)
[2020-12-17 08:00] VITALS: BP 150/105
[2020-12-17 09:52] LABS: HEMATOCRIT 37.7 % (37.0-47.0); HEMOGLOBIN 12.3 gm/dL (12.0-15.0); MCH 28.7 pg (26.0-34.0); MCHC 32.7 g/dL (28.0-37.0); MCV 87.9 fL (80.0-100.0); RBC 4.28 mil/uL (4.20-5.00); RDW 18.8 % (10.5-14.5); WBC 3.9 thou/uL (4.0-11.0)
--- NOTE | 2020-12-17 18:01 | NUR ---
CONT TO BE TOO WEAK TO SIT ON CHAIR FROM BED. NOTED TO HAVE INCREAED PITICHAE TODAY. DR NOTIFIED AND LOVENOX DC. ONCOLOGY CONSULTED AND NEW ORDERS FOR XERALTO INITIATED. PATIENT CONT TO REFUSE TO EAT DESPITE ANY ENCOURAGEMENT. PICC LINE IN PLACE AND PPN INFUSING. ELISEO CATH PLACED FOR ACCURATE I&O AND TO MINIMIZE RISK OF BLEEDING. WILL CONT WITH PLAN OF CARE.
[2020-12-17 19:22] VITALS: BP 143/97
--- NOTE | 2020-12-17 21:48 | NUR ---
ASSUMED CARE OF PT AT 1900. PT IS A&OX4. IS ON ROOM AIR. DENIES PAIN AT THIS TIME. IS STABLE. LIMB ALERT ON BUE. EDEMA, BRUISING, & PETECHIAE NOTED. PT HAS INCREASED WEAKNESS & IS TURNED Q2H. IS UP WITH 1 ASSIST, GB, WALKER. FALL PRECAUTIONS & HOURLY ROUNDING MAINTAINED. LABS & VITALS REVIEWED. WILL CONTINUE TO MONITOR. CALL LIGHT WITHIN REACH.
[2020-12-18 05:44] LABS: CALCIUM 7.4 mg/dL (8.5-10.1); CREATININE 0.6 mg/dL (0.6-1.0); MAGNESIUM 1.8 mg/dL (1.8-2.4); PHOSPHORUS 2.2 mg/dL (2.6-4.7); POTASSIUM 3.1 mmol/L (3.5-5.1)
--- NOTE | 2020-12-18 06:00 | NUR ---
ASSUMED PT CARE AT AROUND 2300 HRS. PT IS ALERT AND ORIENTED, QUIET AND WITH A FALT AFFECT. VERY WEAK, NEEDS HELP WITH REPOSITIONING, GOOD U/O VIA SMITH CATHETER.CONTINUES ON PPN.DENIES PAIN.CALL LIGHT WITHIN REACH.
--- NOTE | 2020-12-18 07:22 | EKG ---
[address] [place] [address] ELECTROCARDIOGRAM REPORT Name: BIPIN RUBI Room #: 509-P ADM IN M.R.#: [id number] Admission: 12/15/20 Attend Phys: Geremias Valadez MD Discharge: Date of : 58 Report #: [id number] [facility] Test Date: 2020-12-16 Test Time: 11:14:02 Pat Name: BIPIN RUBI Department: Room: 509 P Gender: F Steep Tender: CRISTI : 1960 Requested By: Yolie Joseph Order Number: [id number] MD: Quang Maria Measurements Intervals [place] Rate: 97 P: 70 [place]: 144 QRS: -62 QRSD: 67 T: 9 QT: 458 QTc: 582 Interpretive Statements Sinus rhythm Low voltage, extremity and precordial leads Abnormal R-wave progression, late transition Consider inferior infarct Prolonged QT interval Compared to ECG 12/11/2020 15:09:35 Myocardial infarct finding now present Sinus tachycardia no longer present Left-axis deviation no longer present T-wave abnormality no longer present Electronically Signed On 12-18-2020 7:22:06 CDT by Quang Maria [email or web address] <ELECTRONICALLY SIGNED> By: Quang Maira MD, FACC 12/18/20 0722 1114 1114 Quang Maria MD, FAC /EPI
[2020-12-18 08:00] VITALS: BP 162/101
[2020-12-18 08:22] LABS: ABSOLUTE NEUTROPHILS 1.6 thou/uL (1.4-8.2); BASOPHILS 0.6 % (0.0-2.0); EOSINOPHILS 0.5 % (0.0-3.0); HEMATOCRIT 34.6 % (37.0-47.0); HEMOGLOBIN 11.5 gm/dL (12.0-15.0); LYMPHOCYTES 53.8 % (24.0-44.0); MCH 29.3 pg (26.0-34.0); MCHC 33.4 g/dL (28.0-37.0); MCV 87.7 fL (80.0-100.0); MONOCYTES 4.4 % (1.0-8.0); POLYS 40.7 % (36.0-66.0); RBC 3.94 mil/uL (4.20-5.00); RDW 18.1 % (10.5-14.5); WBC 3.9 thou/uL (4.0-11.0)
[2020-12-18 08:55] LABS: PLATELET COUNT 92 thou/uL (150-400); PLATELET ESTIMATE SLIGHTLY DECREASED
--- NOTE | 2020-12-18 10:43 | 2DMMODE ---
[facility] [place] [address] 2 D/M-MODE ECHOCARDIOGRAM Name: BIPIN RUBI Room #: 509-P ADM IN M.R.#: [id number] Admission: 12/15/20 Attend Phys: Geremias Valadez MD Discharge: Date of : 58 Report #: [id number] THIS REPORT FOR: cc: ALIX - Monica family physician/PCP ALIX - No family physician/PCP Quang Maria MD [facility] ~ APPROVED REPORT Study performed: 12/18/2020 09:43:10 EXAM: Comprehensive 2D, Doppler, and color-flow Echocardiogram Patient Location: Bedside Room #: 509 Status: routine BSA: 1.67 HR: 110 bpm BP: 143/97 mmHg Rhythm: Tachycardia Other Information Study Quality: Adequate Indications Diabetes Hypertension/HDD 2D Dimensions RVDd: 28.78 mm IVSd: 11.96 (7-11mm) LVOT Diam: 21.97 (18-24mm) LVDd: 31.05 mm PWd: 11.71 (7-11mm) Ascending Ao: 29.51 (22-36mm) LVDs: 19.93 (25-40mm) Left Atrium: 21.56 (27-40mm) Aortic Root: 33.10 mm IVC: 20.00 mm Volumes Left Atrial Volume (Systole) Single Plane 4CH: 35.21 mL Single Plane 2CH: 16.77 mL LA ESV Index: 16.00 mL/m2 Aortic Valve AoV Peak Trevon.: 0.80 m/s AO Peak Gr.: 2.74 mmHg LVOT Max P.02 mmHg LVOT Max V: 0.71 m/s [facility] [place] [address] [place] [address] 2 D/M-MODE ECHOCARDIOGRAM Name: BIPIN RUBI Room #: 509-P [facility] IN .R.#: [id number] Admission: 12/15/20 Attend Phys: Geremias Valadez, Discharge: Date of : 58 Report #: [id number] KAHLIL Vmax: 3.37 cm2 Pulmonary Valve PV Peak Trevon.: 0.80 m/s PV Peak Gr.: 2.58 mmHg Tricuspid Valve TR Peak Trevon.: 3.20 m/s TR Peak Gr.: 40.91 mmHg PA Pressure: 51.00 mmHg Left Ventricle The left ventricle is normal size. There is normal LV segmental wall motion. There is normal left ventricular wall thickness. The left ventricular systolic function is normal. The left ventricular ejection fraction is within the normal range. LVEF is 60-65%. This study is not technically sufficient to allow evaluation of the LV diastolic function. Right Ventricle The right ventricle is normal size. The right ventricular systolic function is normal. Atria The left atrium size is normal. The right atrium size is normal. Aortic Valve The aortic valve is normal in structure. No aortic regurgitation is present. There is no aortic valvular stenosis. Mitral Valve The mitral valve is normal in structure. There is no mitral valve regurgitation noted. No evidence of mitral valve stenosis. Tricuspid Valve The tricuspid valve is normal in structure. There is trace to mild tricuspid regurgitation. Estimated PAP 51 mmHg. There is moderate pulmonary hypertension. Pulmonic Valve The pulmonary valve is normal in structure. There is no pulmonic valvular regurgitation. Great Vessels The aortic root is normal in size. IVC is normal in size and collapses >50% with inspiration. [facility] [place] [address] 2 D/M-MODE ECHOCARDIOGRAM Name: BIPIN RUBI Room #: 509-P [facility] IN M.R.#: [id number] Admission: 12/15/20 Attend Phys: Geremias Valadez, Discharge: Date of : 58 Report #: [id number] Pericardium Mild anterior pericardial effusion. <Conclusion> Normal left ventricular size/wall thickness Ejection fraction 6065 % Normal right ventricular size/function Normal atrial size Color-flow Doppler study was performed of the aortic/mitral/tricuspid/pulmonary valve Normal aortic/mitral valve structure and function Mild tricuspid valve insufficiency Moderate pulmonary hypertension Pulmonary systolic pressure estimated 51 mmHg No normal aortic root size Mild anterior pericardial effusion, no tamponade physiology <ELECTRONICALLY SIGNED> By: Quang Maria MD, FACC 12/18/20 1043 1043 1043 Quang Maria MD, FACC /INF
--- NOTE | 2020-12-18 14:27 | NUR ---
PT TO XRAY THIS AM FOLLOWING HER HEART ECHO. SHE HAS REMAINED ESSENTIALLY ON BEDREST OTHERWISE, DUE TO THE DVT AND THE NEED FOR XARELTO FOR 24 HOURS BEFORE RESUMING THERAPY PER HOSPITALIST DR. MORALES AND FABRICATION LEAD DOMINIC SAMUELS. PT HAS GOTTEN 2 DOSES OF XARELTO, FIRST DOSE GIVEN YESTERDAY AT 1700, AND WILL BE APPROVED TO RESUME THERAPIES TOMORROW. DRESSING CHANGED TO LEFT PICC LINE, AND NEW PPN BAG HAS BEEN HUNG WITH ADDITIONAL POTASSIUM ADDED PER MD ORDERS. PT REFUSED BREAKFAST, REFUSED MID-MORNING SNACK, AND ATE VERY LITTLE AT LUNCH, BUT COTTAGE CHEESE AND MAGIC CUP WERE SAVED FOR LATER, AND PT DID EAT THE MAJIC CUP ABOUT AN HOUR AGO. SHE HAS NOT VOMITTED, BUT DID STATE THAT SHE FEELS TOO FULL VERY QUICKLY. PT HAD A SMALL INCONT SMEAR BM ON PAD, AND LEAKED A SMALL AMT URINE AROUND HER SMITH BULB THIS AFTERNOON. SMITH HAS BEEN ASSESSED AND IS NO LONGER LEAKING AT THE PRESENT TIME. PT IS TURNING Q 2 H, AND CALLING FOR ASSIST APPROPRIATELY.
--- NOTE | 2020-12-18 15:02 | NUR ---
MEETING REGARDING CONSULT 0319 OCCURED TODAY WITH THIS MANNEQUIN MAKER. SHE REQUESTED ME TO COME BACK TOMORROW TO DO PAPERWORK.
--- NOTE | 2020-12-18 15:56 | NUR ---
chart review. unable to visit with mi rt resting. cm had visited with daughter krystyna we pt was in icu last week. pt lives with her daughter carlos and nephew. she has assist if needed in the home. has w/c, 4ww, and cane. has 5 steps to enter home then no steps inside home. mi been to [facility] as well. set up with [facility] community based service in home as well.
[2020-12-18 19:27] VITALS: BP 135/99
--- NOTE | 2020-12-19 01:28 | NUR ---
PT ALERT AND ORIENTED X 4. PPN INFUSING ORDERED. SMITH PATENT DRAINING CLEAR YELLOW URINE. PT TOOK HS MEDS WITHOUT DIFFICULTY. SPACING MEDS OUT PER PT REQUEST. APPETITE POOR. ATE ONLY A FEW BITES OF RICE FOR DINNER. BLOOD SUGAR 109 AROUND MIDNIGHT. BILATERAL ARM EDEMA NOTED. ELEVATED ON PILLOWS. BED ALARM ON FOR SAFETY. PT APPEARS TO BE SLEEPING ON HOURLY ROUNDS.
[2020-12-19 05:44] LABS: HEMATOCRIT 33.8 % (37.0-47.0); HEMOGLOBIN 11.1 gm/dL (12.0-15.0); MCH 28.8 pg (26.0-34.0); MCHC 32.8 g/dL (28.0-37.0); MCV 87.7 fL (80.0-100.0); PLATELET COUNT 97 thou/uL (150-400); RBC 3.85 mil/uL (4.20-5.00); RDW 18.5 % (10.5-14.5); WBC 3.9 thou/uL (4.0-11.0)
[2020-12-19 05:50] LABS: CALCIUM 7.6 mg/dL (8.5-10.1); CREATININE 0.6 mg/dL (0.6-1.0); MAGNESIUM 1.6 mg/dL (1.8-2.4); PHOSPHORUS 2.1 mg/dL (2.6-4.7); POTASSIUM 3.1 mmol/L (3.5-5.1)
[2020-12-19 07:42] VITALS: BP 150/105
--- NOTE | 2020-12-19 08:23 | HC ---
[facility] [place] [address] CONSULTATION Name: BIPIN RUBI Room #: 509-P [facility] IN M.R.#: [id number] Admission: 12/15/20 Attend Phys: Geremias Valadez MD Discharge: Date of : 58 Report #: [id number] THIS REPORT FOR: cc: ALIX - Monica family physician/PCP ALIX - No family physician/PCP Emelia Page MD ~ DATE OF SERVICE: 12/17/2020 REQUESTING PHYSICIAN: Dr. Valadez. REASON FOR CONSULTATION: Thrombocytopenia. HISTORY OF PRESENT ILLNESS: The patient is a pleasant 60-year-old woman with multiple medical problems including diabetes mellitus, obesity, status post gastric bypass, anastomotic ulcers and general polyps, who was admitted to the hospital with community-acquired pneumonia. The patient was treated with antibiotics. The patient was transferred to rehab floor on 12/16/2020. She developed right upper extremity swelling. Ultrasound was done, which showed DVT. Dr. Joseph, hospitalist, initiated Lovenox. This morning, the patient has bruises on upper extremities, she has mild thrombocytopenia. Hematology consult is requested. The patient is doing well. She does not have complaints of epistaxis, does not have abdominal pain. Denies hemoptysis. She denies fevers or chills. PAST MEDICAL HISTORY: Significant for diabetes mellitus, obesity, status post gastric bypass, peripheral neuropathy, hypertension, failure to thrive. SOCIAL HISTORY: Does not smoke. REVIEW OF SYSTEMS: See above. PHYSICAL EXAMINATION: VITAL SIGNS: Blood pressure 154/100, heart rate is 97, temperature 97.5, respirations 18. NECK: Supple. There is no peripheral lymphadenopathy. HEART: Normal S1, S2. LUNGS: Clear. SKIN: Reveals bruises on the ____ forearms and upper arms. MUSCULOSKELETAL: Swelling of bilateral upper extremities, right more than left. LABORATORY DATA: White count 3.9, hemoglobin 12.3, platelets 104, yesterday platelets were 112. BUN 3, creatinine 0.7. Doppler ultrasound of right upper extremity shows occlusive DVT right ____ vein up to upper arm. [facility] [address] [address] CONSULTATION Name: BIPIN RUBI Room #: 509-P [facility] IN M.R.#: [id number] Admission: 12/15/20 Attend Phys: Geremias Valadez MD Discharge: Date of : 58 Report #: [id number] ASSESSMENT AND PLAN: 1. Thrombocytopenia, mild. There is no precipitous drop of platelets. Continue to monitor. 2. Anticoagulation. The patient states that she developed bruising today. Recommend to discontinue Lovenox. Heparin-induced antibodies were ordered. We will start Xarelto. Thank you very much for allowing us to participate in care of this patient. We will follow the patient with you. <ELECTRONICALLY SIGNED> By: Emelia Page MD 12/19/20 0823 [id number] Emelia Page MD /tari
--- NOTE | 2020-12-19 09:14 | NUR ---
ADV. DIR. CONSULT [id number] WAS COMPLETED AND PLACED IN PATIENT'S CHART BY THIS HUMAN RESOURCE INTERN.
[2020-12-19 10:57] LABS: ABSOLUTE NEUTROPHILS 1.4 thou/uL (1.4-8.2); ANISOCYTOSIS 1+
[2020-12-19 10:58] LABS: OVALOCYTES OCCASIONAL; PLATELET ESTIMATE SLIGHTLY DECREASED; POIKILOCYTOSIS SLIGHT
[2020-12-19 11:16] VITALS: BP 155/113
--- NOTE | 2020-12-19 13:03 | NUR ---
team meeting, reccommendation: anxiety. lori vee assist with bathing, not eating, not caroline therapy rt medical heart rate. mild/severe memory and cath. dpao completed with pt and daughters. dc / home, resume community base service through [facility].
[2020-12-19 13:37] VITALS: BP 157/113
--- NOTE | 2020-12-19 15:05 | PLAN ---
[facility] [address] REHAB UNIT PLAN OF CARE Name: BIPIN RUBI Room #: 509-P ADM IN M.R.#: [id number] Admission: 12/15/20 Attend Phys: Geremias Valadez MD Discharge: Date of : 58 Report #: [id number] THIS REPORT FOR: cc: FAM - No family physician/PCP FAM - No family physician/PCP Geremias Valadez MD ~ DATE OF SERVICE: 12/18/2020 PROGRESS NOTE AND OVERALL PLAN CARE: SUBJECTIVE: The patient is seen today on the acute inpatient rehab haas. She is in no distress. She was diagnosed with a right upper extremity deep venous thrombosis. Discussed with Dr. Singleton in Hematoma. The patient had a previous right sided PICC line. Hematology is following regarding dropping platelets to 104,000. They note agreement with changing her to Xarelto. Lovenox was stopped. She denied any specific complaints otherwise. This morning, last recorded temperature 97.5, pulse 102, respirations 16, and blood pressure 143/97. Therapies did see her and she has been standby assistance sit to stand. Gait 40 feet min assist with a front-wheeled walker. In occupational therapy, upper body dressing is being assessed along with lower body dressing. Some of her therapies were held with the DVT workup and she had some tachycardia. We will be clearing her for therapy if okay with the hospitalist service. ASSESSMENT: 1. Medical complexity with generalized debilitation. 2. Community-acquired pneumonia. 3. Right upper extremity deep venous thrombosis, now on Xarelto. 4. Platelet drop with Hematology involved. 5. Protein-calorie malnutrition. 6. Diabetes mellitus type 2 with peripheral neuropathy. 7. History of schizophrenia with bipolar disorder. 8. History of gastric surgery in 2019. PLAN: The overall plan of care is based on the preadmission screen and information garnered from therapy assessments. 1. Estimated length of stay is 10-14 days. 2. Medical prognosis is reasonably good. 3. Anticipated interventions includes the interdisciplinary acute inpatient rehabilitation program. 4. Anticipated functional outcomes would be for the patient to become modified independent, so she can hopefully return back home and be ambulatory with a walker, improved independence with ADLs as well as cognition. 5. Discharge destination is for her to return back home where she lives with her daughter and grandson. [address] [address] REHAB UNIT PLAN OF CARE Name: BIPIN RUBI Room #: 509-P [facility] IN M.R.#: [id number] Admission: 12/15/20 Attend Phys: Geremias Valadez MD Discharge: Date of : 58 Report #: [id number]. Expected therapy by discipline includes PT, OT and speech 1 hour per day each five days a week throughout the duration of the acute inpatient rehabilitation stay. ADDENDUM: The patient's prognosis for significant practical improvement within a reasonable period of time appears good. Given the patient's complex medical condition and risk of further medical complication, rehabilitation services could not be safely provided at a lower level of care such as a chcf facility. <ELECTRONICALLY SIGNED> By: Geremias Valadez MD 12/19/20 1505 [id number] [id number] Geremias Valadez MD /nt
--- NOTE | 2020-12-19 16:30 | NUR ---
FAXED CLINICAL UPDATE TO [facility] SPOKE WITH [facility] IN INTAKE THEY WILL SEE PT AT [facility] 12/29.
--- NOTE | 2020-12-19 17:34 | NUR ---
PT ALERT AND ORIENTED TIMES FOUR. BP ELEVATED THIS SHIFT AWARE, PRN MEDICATIONS GIVEN. OTHER VSS. PPN INFUSING PER ORDER. SMITH TO DD. PT DENIES PAIN/SOA AT THIS TIME. PT TOLERATES MEDS, BUT EATS VERY SMALL PORTIONS OF MEALS. PT STATES SHE WAS VERY TIRED TODAY AND UNABLE TO GET UP TO WORK WITH PT/OT. WILL CONTINUE TO MONITOR.
[2020-12-19 19:25] VITALS: BP 179/101
[2020-12-20 00:08] VITALS: BP 181/111
[2020-12-20 00:10] VITALS: BP 177/87
--- NOTE | 2020-12-20 03:58 | NUR ---
ASSUMED CARE OF PT AT SHIFT CHANGE. PT IS AOX3-4 AND LETS NEEDS BE KNOWN. FALL PRECAUTION IN PLACE. SMITH IN PLACE AND PATIENT. PPN CONTINUED AT 40ML/HR. PT DENIED PAIN, NAUSEA, OR SOA. PT HAD ELEVATED BP; CARCASS WASHER NOTIFIED AND BP MEDS WERE RESUMED. PT WAS ABLE TO GET COMFORTABLE AND SLEEP PTART OF THE SHIFT. WILL CONTINUE TO MONITOR FOR CHANGES.
[2020-12-20 04:49] VITALS: BP 145/96
[2020-12-20 05:43] LABS: HEMATOCRIT 32.9 % (37.0-47.0); HEMOGLOBIN 10.7 gm/dL (12.0-15.0); MCH 28.8 pg (26.0-34.0); MCHC 32.6 g/dL (28.0-37.0); MCV 88.4 fL (80.0-100.0); PLATELET COUNT 100 thou/uL (150-400); RBC 3.72 mil/uL (4.20-5.00); RDW 18.5 % (10.5-14.5)
[2020-12-20 05:58] LABS: CALCIUM 7.8 mg/dL (8.5-10.1); CREATININE 0.6 mg/dL (0.6-1.0); MAGNESIUM 1.7 mg/dL (1.8-2.4); PHOSPHORUS 2.3 mg/dL (2.5-4.9); POTASSIUM 3.7 mmol/L (3.5-5.1)
[2020-12-20 07:30] VITALS: BP 163/107
[2020-12-20 09:05] LABS: ABSOLUTE NEUTROPHILS 1.7 thou/uL (1.4-8.2)
[2020-12-20 09:12] LABS: ATYPICAL LYMPHS 2 %
[2020-12-20 09:13] LABS: ANISOCYTOSIS 2+
[2020-12-20 09:40] VITALS: BP 163/118
--- NOTE | 2020-12-20 17:52 | NUR ---
PT ALERT AND ORIENTED TIMES FOUR. VSS. PPN INFUSING PER ORDER. SMITH TO DD. PT DNEIES PAIN/SOA. PT TOLERATES MEDS. PT HAS VERY POOR APPETITE, AND EATS A VERY SMALL PORTION OF MEALS. PT WORKED WELL WITH PT/OT WAS UP TO THE CHAIR FOR SOME PART OF THE DAY. PT VERY SLOWLY PROGRESSING TOWARDS POC GOALS.
[2020-12-20 19:15] VITALS: BP 135/100
--- NOTE | 2020-12-21 02:37 | NUR ---
PT ALERT AND ORIENTED X 4. LEFT PICC LINE INTACT AND PATENT. PPN INFUSING ORDERED. SMITH PATENT DRAINING CLEAR YELLOW URINE. SOME LEAKING FROM SMITH. ADDITIONAL 5 ML NS INSERTED IN BALLOON. PT C/O NEUROPATHY PAIN IN HER LEGS. BED ALARM ON FOR SAFETY. PT CHECKED ON HOURLY ROUNDS.
[2020-12-21 06:06] LABS: HEMATOCRIT 29.5 % (37.0-47.0); HEMOGLOBIN 9.9 gm/dL (12.0-15.0); MCH 29.3 pg (26.0-34.0); MCHC 33.4 g/dL (28.0-37.0); MCV 87.8 fL (80.0-100.0); PLATELET COUNT 109 thou/uL (150-400); RBC 3.36 mil/uL (4.20-5.00); RDW 18.4 % (10.5-14.5); WBC 4.1 thou/uL (4.0-11.0)
[2020-12-21 08:18] VITALS: BP 156/79
--- NOTE | 2020-12-21 09:34 | NUR ---
ASSUMED CARE AT 0700 THIS MORNING. PT. A & OX 4. WHILE ATTEMPTING TO GIVE HER MORNING MEDICATIONS, SHE WANTED TO WAIT UNTIL AFTER BREAKFAST TO TAKE THEM. ABOUT 0900 THIS RN WENT TO HER ROOM AND SHE WAS NOTED TO BE C/O OF NOT FEELING WELL AFTER EATING BREAKFAST. SHE REQUESTED TO LAY DOWN IN BED. SHE DID SO. PPN INFUSING. SARAH TO DD. HAS L PICC LINE. UP WITH ASSIST OF 1 TO 2. NO LEAKAGE NOTED TO SARAH THIS MORNING. SHE DENIED HAVING BM THIS MORNING. BUT HAD TWO SMALL BM'S LAST NOC. DENIES PAIN/SOA. WORKING WITH PT/OT WELL. UP IN CHAIR FOR BREAKFAST.
[2020-12-21 11:43] LABS: ABSOLUTE NEUTROPHILS 1.2 thou/uL (1.4-8.2); ATYPICAL LYMPHS 3 %
[2020-12-21 11:44] LABS: ANISOCYTOSIS 2+; OVALOCYTES FEW
--- NOTE | 2020-12-21 13:26 | NUR ---
Nutrition: Calorie count results as follows. Day 1: PO met 24% kcal needs, 47% protein needs. Pt consumed 450 kcals, 44 gm protein. PPN plus PO this day met 42% kcal needs, 47% protein needs. Day 2: PO met 50-53% of needs and PO plus PPN met 68% kcal needs, 100% protein needs. Continue to encourage eating nutrient dense foods q 2-3 hrs to help meet needs. Would recommend continueing PPN to help meet needs.
[2020-12-21 19:22] VITALS: BP 144/96
--- NOTE | 2020-12-22 00:30 | NUR ---
DECLINING ALL OFFERS OF FOOD THIS SHIFT, SHE FEELS IF ANYTHING SHE EATS INCREASES HER DIARRHEA. 3 LOOSE YELLOW STOOLS ALREADY THIS SHIFT. PPN INFUSING THROUGH JANICE PICC LINE. TOLERATING PILLS WITH WATER. CAPSAICIN APPLIED BILATERALLY TO KNEES AND CALVES. PATIENT PLEASANT AND APPRECIATES OUR ASSIST WITH BEDPAN AND REPOSITIONING HIGHER IN BED, IS TURNING HERSELF MODESTO TO SIDE.
--- NOTE | 2020-12-22 02:13 | NUR ---
2 MORE YELLOW STOOLS, MORE LIQUID THAN LOOSE, WILL SEND SAMPLE TO LAB TO CHECK FOR C. DIFF (PRIOR TO GETTING ORDER FOR IMMODIUM)
[2020-12-22 07:15] VITALS: BP 149/97
--- NOTE | 2020-12-22 11:25 | NUR ---
ASSUMED CARE AT 0700 THIS MORNING. PT. BED. SHE TOOK HER MEDICATIONS WITHOUT PROBLEMS THIS MORNING. AFTER BREAKFAST SHE C/O STOMACH ACHE. RAVEN ROBERTS NOTIFIED. SHE HAD ANOTHER BOWEL MOVEMENT. SAMPLE SENT TO LAB. HER BED WAS CHANGED ZGUARD APPLIED TO BUTTOCKS. SHE WORKED WELL WITH OT/RT. PICC LINE TO JANICE. HAS SARAH TO ALVINA. PPN WITH POTASSIUM AT 40 MEQ AN HOUR.
--- NOTE | 2020-12-22 13:09 | NUR ---
GI COIN MACHINE MECHANIC RUBI YOON IN TO SEE PATIENT, AND DISCUSSED NUTRITION AND LOOSE STOOLS. PT HAD LOOSE WATERY CONTINENT BM ON BEDPAN JUST NOW. CDT PRECAUTIONS UNTIL RESULTS FROM TESTING.
[2020-12-22 19:10] VITALS: BP 127/89
--- NOTE | 2020-12-23 01:00 | NUR ---
4 LOOSE STOOLS SO FAR THIS SHIFT, PATIENT PROVED TO BE C DIFF NEGATIVE, IMMODIUM INITIATED. PATIENT ATE HALF OF A TURKEY SANDWICH AT APPROX 2200, SHE FEELS THAT ANY TIME SHE EATS IT CAUSES DIARRHEA. PPN CONTINUES THROUGH A LEFT UPPER ARM PICC LINE. TURNS SELF IN BED, NEEDS ENCOURAGEMENT AND/OR ASSIST TO GET UP HIGHER IN THE BED AFTER BEING CLEANED AFTER BEDPAN USE. SMITH PATENT TO ALVINA.
[2020-12-23 06:03] LABS: BASOPHILS 0.7 % (0.0-2.0); EOSINOPHILS 0.4 % (0.0-3.0); HEMATOCRIT 29.6 % (37.0-47.0); HEMOGLOBIN 9.8 gm/dL (12.0-15.0); MCV 87.8 fL (80.0-100.0); MONOCYTES 10.8 % (1.0-8.0); PLATELET COUNT 146 thou/uL (150-400); POLYS 25.1 % (36.0-66.0); RBC 3.37 mil/uL (4.20-5.00); RDW 18.1 % (10.5-14.5); WBC 3.9 thou/uL (4.0-11.0)
[2020-12-23 06:29] LABS: CALCIUM 8.1 mg/dL (8.5-10.1); CREATININE 0.5 mg/dL (0.6-1.0); MAGNESIUM 1.7 mg/dL (1.8-2.4); POTASSIUM 4.6 mmol/L (3.5-5.1)
[2020-12-23 08:00] VITALS: BP 120/80
--- NOTE | 2020-12-23 10:08 | NUR ---
ASSUMED CARE AT 0700. PATIENT IS ALERT AND ORIENTEDX4. PATIENT SEGURA'S, AUTOMOBILE GLASS TECHNICIAN ARE EQUAL. LUNGS ARE DEMINISHED. PATIENT HAS NON-PRODUCTIVE COUGH. PATIENT IS ON FLAGYL. PATIENT IS ON IMMODIUM FOR LOOSE STOOLS. PATIENT HAS LEFT UPPER ARM PICC LINE. PATIENT HAS SMITH CATHETER THAT IS DRAINING BRAYDON COLORED URINE. UP ON SIDE OF SIDE WITH O.T. FALL AND SAFETY PROTOCOLS IN PLACE. C/O PAIN IN HER KNEES. PRN PAIN OINTMENT APPLIED. PATIENT CONTINUES TO PROGRESS SLOWLY TOWARDS D/C GOALS. WILL CONTINUE TO MONITER
[2020-12-23 19:43] VITALS: BP 122/80
--- NOTE | 2020-12-23 23:24 | NUR ---
PT ASSESSMENT COMPLETED AND VSS. MEDS GIVEN ORDERED AND WELL TOLERATED. FALL PRECAUTIONS IN PLACE. PPN RUNNING WNL. ASST WITH REPOSITION FOR COMFORT USING PILLOWS. INC OF URINE AT HS. DEUCE CARE PROVIDED. SLEEPING WELL AT THIS TIME. WILL CONTINUE TO MONITOR FREQUENTLY.
[2020-12-24 07:15] VITALS: BP 111/75
--- NOTE | 2020-12-24 13:44 | NUR ---
ASSUMED CARE AT 0700 TODAY. PT. COOPERATIVE WITH WALKING WITH THERAPIES TODAY. COOPERATIVE WITH MEDS/MEALS SITTING IN A CHAIR. HAS HAD 5 LOOSE BOWEL MOVEMENTS THIS SHIFT. TALKED TO PT. ABOUT MAKING SURE SHE DRINKS PLENTY OF FLUIDS EACH DAY. SMITH TO DD. SHE GETS Z-GUARD TO HER COCCYX TO REDDENED AREAS. WILL CONTINUE TO MONITOR.
[2020-12-24 19:22] VITALS: BP 129/77
--- NOTE | 2020-12-24 23:09 | NUR ---
PT ASSESSMENT COMPLETED AND VSS. MEDS GIVEN ORDERED AND WELL TOLERATED. FALL PRECAUTIONS IN PLACE. ASST WITH REPOSITION USING PILLOWS FOR COMFORT. ZGUARD APPLIED WITH REPOSITION. LOOSE STOOL X 1 SO FAR DURING SHIFT. PPN RUNNING AT 40. SMITH DRAINING YELLOW URINE. PT APPEARS STRONGER THIS EVENING AND STATES THAT SHE IS STARTING TO FEEL BETTER. ENC FLUIDS. SLEEPING WELL. WILL CONTINUE TO MONITOR FREUQENTLY.
[2020-12-25 05:30] LABS: HEMATOCRIT 28.7 % (37.0-47.0); HEMOGLOBIN 9.4 gm/dL (12.0-15.0); MCH 29.2 pg (26.0-34.0); MCHC 32.9 g/dL (28.0-37.0); MCV 88.8 fL (80.0-100.0); RBC 3.23 mil/uL (4.20-5.00); RDW 18.6 % (10.5-14.5); WBC 4.8 thou/uL (4.0-11.0)
[2020-12-25 05:43] LABS: CALCIUM 8.4 mg/dL (8.5-10.1); CREATININE 0.6 mg/dL (0.6-1.0); POTASSIUM 4.6 mmol/L (3.5-5.1)
--- NOTE | 2020-12-25 05:59 | NUR ---
CONTACTED UTILITY ACCOUNTS DIRECTOR DOMINIC EARLY THIS MORNING BECAUSE PT SMITH CATH STARTED LEAKING AGAIN. PER ORDERS REMOVED SMITH. PT HAS VOIDED 200 SINCE SMITH OUT AT 0300 AM. ALSO, PT HAD 3 LARGE LOOSE LIGHT ROGER BOWEL MOVEMENTS DURING THE SHIFT. UTILITY ACCOUNTS DIRECTOR ORDERED MORE IMODIUM TO HELP CONTROL PT'S LOOSE STOOLS.
[2020-12-25 07:15] VITALS: BP 106/87
--- NOTE | 2020-12-25 18:00 | NUR ---
PATIENT HAS VOIDED SEVERAL TIMES LARGE AMOUNTS, AND HAS ONLY HAD 1 BM THROUGHOUT THE DAY. NOTED TO MD THIS AM THAT PT'S HR WAS ELEVATED AND BP WAS LOWER. PT TOELRATED THERAPIES WITH SOME C/O FATIGUE, AND ENCOURAGED PO INTAKE AND FLUIDS. DR. MORALES IN TO SEE PT THIS EVENING, AND RECEIVED HIS REPORT THAT PT WILL LIKELY BE REMOVED FROM TPN TOMORROW. PT AGREED WITH THIS PLAN AND WILL CONTINUE TO TRY TO EAT AND DRINK.
[2020-12-25 19:10] VITALS: BP 119/75
--- NOTE | 2020-12-26 04:51 | NUR ---
ASSESSMENT: PT REMAIN ALERT AND ORIENT TIMES FOUR. UP TO BSC WITH SBA. PT WAS INCONTINENT TIMES TWO TO BLADDER. SMITH WAS DC'D ON 12/25/20. PT HAS PRODUCED ADEQUATE AMTS OF URINE SINCE THEN. NO BM, LOTS OF FOUL FLATUS. LEFT UA DL PICC INTACT AND PATENT. TPN WILL CONTINUE UNTIL DC'D TODAY SOME TIMES. VSS. STILL A BIT TACHY, HR 110'S-120'S. DENIES PAIN, SOB AND N/V. BLOOD SUGAR TAKEN R/T TPN. ENCOURAGED TO DRINK MORE FLUIDS. SLOW PROGRESS TOWARDS DC GOALS, WILL CONTINUE TO MONITOR.
[2020-12-26 09:32] VITALS: BP 112/84
--- NOTE | 2020-12-26 13:06 | NUR ---
team meeting, reccommendation: poor intake. on tpn, consult dr velasco. possible GI consult as well. dc 4/2 nursing only, if medically cleared. resume maame bryant. family to assist with medication. tpn will possible be dc today. consults for possible peg tube.
--- NOTE | 2020-12-26 19:26 | NUR ---
A/O, calm and cooperative. patient tried to eat, finished about 90 % of the dinner, voicing that it took some time for the stomach to feel comfortable after eating every time, but no nausea or vomitting. Metoprolo held due to systolic BP below 120, but HR in 120s, primary doctor was aware of that.
[2020-12-26 19:43] VITALS: BP 108/72
--- NOTE | 2020-12-27 01:42 | NUR ---
Assumed pt care at 1900. A/OX4,VSS.C/o pain to BLE,Capsaicin applied as ordered and effective. No c/o NV,diarrhea this shift.HS snack offered to pt and leftovers placed back in fridge. Last bag of TPN infusing as ordered @ 40ml/hr via LUE PICC w/o any problems. Up with AX1, RW/GB.Resting quietly at this time w/o any ditress noted. Fall precautions in place,will continue to monitor pt.
[2020-12-27 08:00] VITALS: BP 138/90
--- NOTE | 2020-12-27 09:42 | NUR ---
NURSE DIVERSIFIED CROPS FARMWORKER WONG RYDER, HAS ATTEMPTED TO CONTACT "HODA Vanegas" AT THE SOCIAL SECURITY OFFICE X 2 YESTERDAY AND TODAY, AND A MESSAGE HAS BEEN LEFT ON THIS NUMBER AND EXTENSION: [phone] EXT [phone]. PATIENT'S IDENTIFYING INFORMATION HAS NOT BEEN SHARED ON THIS MESSAGE, AND PRIVACY HAS BEEN COMPLETELY PROTECTED. PATIENT HAD REQUESTED ASSIST WITH THIS ISSUE AFTER RECEIVING A LETTER THAT ALERTED HER TO POTENTIAL CESSATION OF HER SSI AND MEDICAID BENEFITS. DIRECTOR VACCINE RADHA DENG AND THE PATIENT HAVE BEEN ADVISED OF THE NURSE DIVERSIFIED CROPS FARMWORKER'S ATTEMPTS TO REACH THIS PERSON. WILL AWAIT A CALL BACK FROM HODA Steinberg AT THE SSI OFFICE.
--- NOTE | 2020-12-27 12:17 | NUR ---
[place] [phone]. " dr velasco came and saw me, talked about peg tube, i did not know about that. i told him i will discuss it with my daughter before make decision, did you know about that?"/mi. tigre education that saw consult ordered " ok then i still want to talk with krystyna and daughter. thank you"/mi.
--- NOTE | 2020-12-27 12:18 | NUR ---
PATIENT IS ALERT ANDORIENTED X 3-4, ABLE TO VOICE NEED. LCTA RESP EVEN UNLABORED, NO SOA/CYANOSIS NOTED BS+X4, ABD SOFT, NON-TENDER TO TOUCH. PATIENT IS EATING MEALS, AND DRINKING FLUID WELL. LAST BAG OF PTN FINISHED, PICC LINE TO LUE PATIENT, NO ISSUES. PATIENT TOOK MORNING MEDICATION WHOLE WITHOUT DIFFICULTY. PATIENT STATES SHE FEELS BETTER TODAY, "HAS NOT FELT THIS GOOD IN A LONG TIME". PATIENT DID VOICE SLIGHT DISCOMFORT TO GINA KNEE/CALF, DID NOT WANT PAIN MEDICATION. CAPSAICIN APPLIED TO BLE, WITH POSITIVE EFFECT. FALL PRECAUTION IN PLACE, CALL LIGHT IN REACH. NO SIGN OF ACUTE DISTRESS NOTED AT THIS TIME, WILL MONITOR FOR SAFETY.
[2020-12-27 19:20] VITALS: BP 118/83
--- NOTE | 2020-12-27 23:00 | NUR ---
ASSESSED AT START OF SHIFT PT A&OX4 RETSING IN BED. HAD 2 BM AT START OF SHIFT. LOPERAMIDE GIVEN. PICC LINE INTACT AND SALINE LOCK. PT DENIES PAIN, NAUSEA AND VOMITING. UP WITH SBA TO THE BSC. FALL PREC IN PLACE AND CALL LIGHT AT REACH. NO FURTHER SIGNS OF DISCOMFORT WILL CONT TO MONITOR.
[2020-12-28 08:00] VITALS: BP 132/100
--- NOTE | 2020-12-28 15:39 | NUR ---
Alert and orientated X4. Calm, cooperative and compliant. Breath sounds clear. Reg HR, slightly tachycardic auscultated. Color pale pink with brisk capillary refill and palpable peripheral pulses. Yellow urine with large, yellow formed stool per commode.
[2020-12-28 19:11] VITALS: BP 126/84
--- NOTE | 2020-12-29 03:04 | NUR ---
assumed care approx 1900 evening 12/28. pt alert and oriented x4, appropriate and cooperative. pt in good mood stated she was glad she was going to be dcd, pt took hs meds with water tolerating well. pt has been sleeping soundly. bed alarm on and call light in reach. will continue to monitor.
[2020-12-29 07:15] VITALS: BP 132/97
[2020-12-29 08:12] VITALS: BP 126/84
[2020-12-29 09:00] VITALS: BP 132/97
[2020-12-29] MEDS ORDERED: TOPROL XL25 MG PO (10:41)
[2020-12-29] MEDS ORDERED: XARELTO15 MG PO (10:41)
[2020-12-29] MEDS ORDERED: LOPERAMIDE 2 MG2 M1 PO (10:41)
--- NOTE | 2020-12-29 11:22 | NUR ---
ASSUMED CARE AT 0700. SLEPT FAIRLY WELL. ALERT AND ORIENTATED X 4. PAIN IS STABLE AND MANAGEABLE FOR NOW. BLOOD SUGAR 71. PT APPETITE GOOD. DENIES ANY ABDOMINAL PAIN. HAD A FORMED BM TODAY. L PICC REMOVED TODAY. PLAN FOR DC TODAY WITH HH. DISCHARGE INSTRUCTIONS AND EDUCATION GIVEN TO BED. ALL QUESTIONS AND CONCERNS.
--- NOTE | 2020-12-29 16:36 | NUR ---
PT DISCHARGING TODAY TO HOME WITH HH FAXED [facility]OT[facility]AR[facility] RECEIVED CONFIRMATION AND SPOKE WITH CATERINA IN INTAKE SHE WILL ARRANGE PT.
--- NOTE | 2020-12-29 16:39 | NUR ---
PT DISCHARGING TODAY TO HOME WITH LAURA METZGER RECEIVED CONFIRMATION AND LEFT MSG WITH CATERINA IN INTAKE SHE WILL ARRANGE VISITS WITH PT.
== END 2020-12-29 13:24 | disposition home health service (06) | DRG 947 ==
PROVIDERS: Hospitalist; Internal Medicine; Internal Medicine Hematology & Oncology; Nurse Practitioner; Nurse Practitioner Family; ADMIT Physical Medicine & Rehabilitation; ATTEND Physical Medicine & Rehabilitation
DX: R53.81 Other malaise (principal); J18.9 Pneumonia, unspecified organism; I10 Essential (primary) hypertension; D69.6 Thrombocytopenia, unspecified; E87.6 Hypokalemia; E83.42 Hypomagnesemia; N39.3 Stress incontinence (female) (male)
CPT/HCPCS: 10112

== ENCOUNTER 2021-01-29 08:40 | Emergency (ER) | payer OTHER ==
[~2021-01-29] VITALS: Ht 160 cm; Wt 47.2 kg
[~2021-01-29 08:40] MED LIST changes: +CEFUROXIME500 MG PO; +CLONIDINE HCL0.3 M3 PO; +EFFER-K 20 MEQ20 ME1 PO; +LISINOPRIL20 MG PO; +LOPERAMIDE 2 MG2 M1 PO; +TOPROL XL25 MG PO; +XARELTO15 MG PO
[2021-01-29 09:17] LABS: ANION GAP 10 mmol/L (7-16); BUN 11 mg/dL (7-18); CALCIUM 7.9 mg/dL (8.5-10.1); CHLORIDE 115 mmol/L (98-107); CO2 21 mmol/L (21-32); CREATININE 0.7 mg/dL (0.6-1.0); GLUCOSE 75 mg/dL (74-106); POTASSIUM 3.5 mmol/L (3.5-5.1); SODIUM 146 mmol/L (136-145)
[2021-01-29 09:20] LABS: ABSOLUTE NEUTROPHILS 2.4 thou/uL (1.4-8.2); BASOPHILS 0.7 % (0.0-2.0); EOSINOPHILS 0.6 % (0.0-3.0); HEMATOCRIT 34.2 % (37.0-47.0); HEMOGLOBIN 11.2 gm/dL (12.0-15.0); LYMPHOCYTES 46.9 % (24.0-44.0); MCH 29.8 pg (26.0-34.0); MCHC 32.7 g/dL (28.0-37.0); MCV 90.9 fL (80.0-100.0); MONOCYTES 6.3 % (1.0-8.0); PLATELET COUNT 220 thou/uL (150-400); POLYS 45.5 % (36.0-66.0); RBC 3.76 mil/uL (4.20-5.00); RDW 17.1 % (10.5-14.5); WBC 5.4 thou/uL (4.0-11.0)
[2021-01-29 09:28] LABS: ALBUMIN 1.9 g/dL (3.4-5.0); SGOT 7 U/L (15-37); SGPT 36 U/L (14-59); TOTAL BILIRUBIN 0.4 mg/dL (0.2-1.0); TOTAL PROTEIN 5.5 g/dL (6.4-8.2); TROPONIN-I <0.06 ng/mL (<0.06)
[2021-01-29 09:41] LABS: INR 1.16; PROTIME 12.6 Seconds (10.5-12.1)
[2021-01-29] MEDS ORDERED: COLESTIPOL HCL1 G1 PO (09:41)
[2021-01-29] MEDS ORDERED: REMERON 30 MG T30 M1 PO (09:43)
[2021-01-29] MEDS ORDERED: PREGABALIN25 MG PO (09:44)
[2021-01-29 09:45] LABS: URINE BILIRUBIN NEGATIVE (Negative); URINE BLOOD NEGATIVE (Negative); URINE CLARITY CLEAR; URINE COLOR YELLOW; URINE GLUCOSE-RANDOM* NEGATIVE (Negative); URINE KETONES NEGATIVE (Negative); URINE LEUKOCYTES-REFLEX NEGATIVE (Negative); URINE NITRITE-REFLEX NEGATIVE (Negative); URINE PROTEIN (DIPSTICK) NEGATIVE (Negative); URINE SPECIFIC GRAVITY >= 1.030 (1.005-1.035); URINE UROBILINOGEN 0.2 E.U./dl (0.2-1.0)
[2021-01-29] MEDS ORDERED: TOPROL XL25 MG PO (11:10)
[2021-01-29] MEDS ORDERED: XARELTO10 M1 PO (11:10)
[2021-01-29 11:33] VITALS: BP 127/84
--- NOTE | 2021-01-29 12:34 | EKG ---
[facility] [place] [address] ELECTROCARDIOGRAM REPORT Name: BIPIN RUBI Room #: DEP BELINDA Chacon#: [id number] Admission: 01/29/21 Attend Phys: Discharge: 01/29/21 Date of : 58 Report #: [id number] [facility] ED Test Date: 2021-01-29 Test Time: 09:03:27 Pat Name: BIPIN RUBI Department: Room: Gender: F Hand Ii Tube Bender: : 1960 Requested By: eGremias Ch Order Number: [id number] MD: Quang Maria Measurements Intervals [place] Rate: 60 P: 0 NM: 148 QRS: -29 QRSD: 82 T: 27 QT: 412 QTc: 412 Interpretive Statements Sinus rhythm Borderline left axis deviation Low voltage, extremity leads Baseline wander in lead(s) V6 Compared to ECG 12/16/2020 11:14:02 Myocardial infarct finding no longer present Prolonged QT interval no longer present Electronically Signed On 01-29-2021 12:34:25 CDT by Quang Maria [email or web address] <ELECTRONICALLY SIGNED> By: Quang Maria MD, [facility] 01/29/21 1234 2 2 Quang Maria MD, [facility] /EPI
== END 2021-01-29 11:33 | disposition home or self-care (01) ==
LOC: ER 08:40
PROVIDERS: Emergency Medicine
DX: S01.81XA Laceration without foreign body of other part of head, initial encounter (principal); E11.9 Type 2 diabetes mellitus without complications; F20.9 Schizophrenia, unspecified; I10 Essential (primary) hypertension; E78.5 Hyperlipidemia, unspecified; Z90.49 Acquired absence of other specified parts of digestive tract; Z88.8 Allergy status to other drugs, medicaments and biological substances; W01.198A Fall on same level from slipping, tripping and stumbling with subsequent striking against other object, initial encounter; Y93.89 Activity, other specified; Y92.89 Other specified places as the place of occurrence of the external cause; Y99.8 Other external cause status

== ENCOUNTER 2021-05-01 19:12 | Emergency (ER) | payer OTHER ==
[~2021-05-01] VITALS: Ht 162.6 cm; Wt 49.9 kg
--- NOTE | ~2021-05-01 | EMS ---
[facility] [address] [place] [address] EMS Patient Care Report Name: BIPIN RUBI Room #: DEP BELINDA Chacon#: [id number] Admission: 05/01/21 Attend Phys: Discharge: 05/02/21 Date of : 58 Report #: [id number] THIS REPORT FOR: //name// Report Transmitted: 05/02/2021 13:06 EMS Care Summary [place]/[facility] Incident [id number] @ 05/01/2021 18:29 Incident Location [address] [place] [id number] Patient BIPIN RUBI Female, 60 Years 1960 Patient Address [address] [place] [id number] Patient History Neuropathy, Patient Allergies Other drug allergy, Patient Medications Metoprolol, Folic acid, Xarelto, Duloxetine, Sucralfate, Mirtazapine, Chief Complaint WEAKNESS Disposition Transported No Lights/[place] Dispatch Reason Sick Person Transported To [facility] Narrative M41 DISPATCHED TO A SICK PERSON. M41 AOS AND FOUND A 60 YO FEMALE PT COMPLAINING OF INCREASING WEAKNESS IN HER LOWER EXTREMITIES. THE PT STATES THAT SHE HAS GOTTEN WEAKER IN THE PAST WEEK. [facility] [address] [place] [address] EMS Patient Care Report Name: BIPIN RUBI Room #: DEP ER Ines#: [id number] Admission: 05/01/21 Attend Phys: Discharge: 05/02/21 Date of : 58 Report #: [id number] THE PT STATES THAT SHE HAS NEUROPATHY IN HER LEGS AND SHE BELIEVES THAT IS WHAT IS CAUSING THE WEAKNESS. PT DENIES CP, SOA, DIZZINESS, NV, ABD PAIN. THE PT STATES THAT YESTERDAY HER LEGS GAVE OUT AT THE [facility]. SHE STATES THAT SHE DID NOT FALL BUT CAUGHT HERSELF ON THE CART AND SOMEONE WAS ABLE TO HELP HER UP. THE PT STATES THAT SHE HAS BEEN NONCOMPLIANT WITH HER MEDICATION SINCE MID FEBRUARY. PT CARRIED TO THE COT AND INTO THE AMBULANCE. VITALS OBTAINED. BGA OBTAINED. [address] LEAD OB[address]ED. M[address] [place]. EN ROUTE PT REMAINED STABLE. REPORT GIVEN TO KAITLYNN DOE. SIGNATURES OBTAINED. TRANSFER OF CARE TOOK PLACE. M41 IN SERVICE. 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 Initial Vitals @18:51P: 40, @18:44P: 76,SpO2: 82, @18:50P: 85,BP: 102/79,SpO2: 85, @18:56P: 85,R: 18,BP: 97/65,Pain: 0/10,GCS: 15,SpO2: 100,Revised Trauma: 12, @18:45P: 88,R: 18,BP: 101/76,Pain: 0/10,GCS: 15,Glucose: 89,SpO2: 98,Revised Trauma: 12, Assessments @18:41MENTAL:Event Oriented,Place Oriented,Person Oriented,Time Oriented,SKIN:HEENT:Head/Face: No Abnormalities,Neck/Airway: No Abnormalities,LUNG SOUNDS:General: No Abnormalities,ABDOMEN:General: No Abnormalities,PELVIS//GI:No Abnormalities,EXTREMITIES:Capillary Refill: Right Upper: < 2 Sec,Right Leg: Weakness,Left Arm: No Abnormalities,Right Arm: No Abnormalities,PULSE:Radial: 2+ Normal,NEURO:No Abnormalities, Impression Generalized Weakness Procedures @18:41ALS AssessmentResponse: UnchangedSucceeded@18:513-Lead ECGResponse: UnchangedSucceeded Timeline [facility] [address] [place] [address] EMS Patient Care Report Name: BIPIN RUBI Room #: DEP BELINDA Chacon#: [id number] Admission: 05/01/21 Attend Phys: Discharge: 05/02/21 Date of : 58 Report #: [id number] 18:25,Call Received 18:25,Dispatch Notified 18:29,Dispatched 18:30,En Route 18:39,On Scene 18:41,At Patient 18:41,ALS Assessment,Response: UnchangedSucceeded, 18:44,BP: / M,PULSE: 76,RR: R,SPO2: 82 Ox,ETCO2: ,BG: ,PAIN: ,GCS: , 18:45,BP: 101/76 M,PULSE: 88,RR: 18 R,SPO2: 98 Ox,ETCO2: ,B,PAIN: 0,GCS: 15, 18:50,BP: 102/79 M,PULSE: 85,RR: R,SPO2: 85 Ox,ETCO2: ,BG: ,PAIN: ,GCS: , 18:51,3-Lead ECG,Response: UnchangedSucceeded, 18:51,BP: / M,PULSE: 40,RR: R,SPO2: Ox,ETCO2: ,BG: ,PAIN: ,GCS: , 18:55,Depart Scene 18:56,BP: 97/65 M,PULSE: 85,RR: 18 R,SPO2: 100 Ox,ETCO2: ,BG: ,PAIN: 0,GCS: 15, 19:09,At Destination 19:18,Call Closed Disclaimer v1.1 Copyright 2020 [employer] This EMS Care Summary contains data elements from the applicable legal record (which may be displayed differently). It is designed to provide pertinent information for the following purposes: continuity of care, clinical quality, and state data reporting. The complete legal record is available to ED staff and administrators of the receiving hospital in [employer] Patient Tracker. All data is provided "as is."
[~2021-05-01 19:12] MED LIST changes: +PREGABALIN25 MG PO; +XARELTO10 M1 PO
[2021-05-01 19:16] VITALS: BP 116/77
[2021-05-01 19:59] LABS: ABSOLUTE NEUTROPHILS 3.2 thou/uL (1.4-8.2); BASOPHILS 0.2 % (0.0-2.0); EOSINOPHILS 0.2 % (0.0-3.0); HEMOGLOBIN 11.6 gm/dL (12.0-15.0); LYMPHOCYTES 43.4 % (24.0-44.0); MCH 30.4 pg (26.0-34.0); MCHC 34.1 g/dL (28.0-37.0); MCV 89.3 fL (80.0-100.0); MONOCYTES 7.5 % (1.0-8.0); PLATELET COUNT 261 thou/uL (150-400); POLYS 48.7 % (36.0-66.0); RDW 16.9 % (10.5-14.5); WBC 6.5 thou/uL (4.0-11.0)
[2021-05-01 20:17] LABS: ANION GAP 9 mmol/L (7-16); BUN 19 mg/dL (7-18); CALCIUM 7.6 mg/dL (8.5-10.1); CHLORIDE 108 mmol/L (98-107); CO2 32 mmol/L (21-32); CREATININE 0.7 mg/dL (0.6-1.0); GLUCOSE 89 mg/dL (74-106); SODIUM 149 mmol/L (136-145); TROPONIN-I <0.06 ng/mL (<0.06)
[2021-05-01 20:20] LABS: POTASSIUM 1.1 mmol/L (3.5-5.1)
[2021-05-01 20:52] LABS: ALBUMIN 2.3 g/dL (3.4-5.0); DIRECT BILIRUBIN 0.3 mg/dL (<0.1-0.2); TOTAL BILIRUBIN 1.2 mg/dL (0.2-1.0); TOTAL PROTEIN 5.4 g/dL (6.4-8.2)
[2021-05-01 21:59] LABS: URINE BILIRUBIN NEGATIVE (Negative); URINE BLOOD NEGATIVE (Negative); URINE CLARITY SL CLOUDY; URINE COLOR YELLOW; URINE GLUCOSE-RANDOM* NEGATIVE (Negative); URINE KETONES 1+ (Negative); URINE LEUKOCYTES-REFLEX NEGATIVE (Negative); URINE NITRITE-REFLEX NEGATIVE (Negative); URINE PROTEIN (DIPSTICK) NEGATIVE (Negative); URINE UROBILINOGEN 0.2 E.U./dl (0.2-1.0)
--- NOTE | 2021-05-02 01:34 | NUR ---
PATIENT UPSET BECAUSE SHE BEEN ADMITTED IN THE HOSPITAL. PT SAID DOESN'T WANT TO MISS HER GRANDDAUGTHER'S BIRTHDAY. NOTIFIED NABILA SLP TEACHER AND SHE SAID WILL COME BACK TO TALK WITH PATIENT. PATIENT IS GETTING AGITATED AND CALLIN HER DAUGTHER. SHE WILL BE LEAVING AMA.
[2021-05-02 02:15] VITALS: BP 119/78
--- NOTE | 2021-05-02 02:31 | NUR ---
NOTIFIED NABILA ROBERTS ABOUT PT LEAVING AMA.
--- NOTE | 2021-05-02 07:38 | EKG ---
[place] [address] [address] [place] [address] ELECTROCARDIOGRAM REPORT Name: BIPIN RUBI Room #: DEP BELINDA Chacon#: [id number] Admission: 05/01/21 Attend Phys: Discharge: 05/02/21 Date of : 58 Report #: [id number] [facility] ED Test Date: 2021-05-01 Test Time: 19:24:10 Pat Name: BIPIN RUBI Department: Room: 170 Gender: F Support Group Manager: CARROLL : 1960 Requested By: Magen Bueno Order Number: [id number] MD: Quang Maria Measurements Intervals [place] Rate: 86 P: 83 AL: 167 QRS: -72 QRSD: 92 T: -75 QT: 456 QTc: 546 Interpretive Statements Sinus rhythm Probable inferior infarct, age indeterminate Prolonged QT interval Compared to ECG 01/29/2021 09:03:27 Myocardial infarct finding now present Prolonged QT interval now present Electronically Signed On 05-02-2021 7:38:26 CDT by Quang Maria [email or web address] <ELECTRONICALLY SIGNED> By: Quang Maria MD, [facility] 05/02/21 0738 23 23 Quang Maria MD, [facility]ACC /EPI
== END 2021-05-02 02:15 | disposition left against medical advice (07) ==
LOC: ER 19:12 → EROBS 21:24 → ER 05-02 02:15
PROVIDERS: Nurse Practitioner
DX: R53.1 Weakness (principal); E11.9 Type 2 diabetes mellitus without complications; F20.9 Schizophrenia, unspecified; F31.9 Bipolar disorder, unspecified; I10 Essential (primary) hypertension; E78.5 Hyperlipidemia, unspecified; Z20.822 Contact with and (suspected) exposure to COVID-19; Z90.49 Acquired absence of other specified parts of digestive tract; Z98.890 Other specified postprocedural states; Z79.899 Other long term (current) drug therapy; Z88.6 Allergy status to analgesic agent